=== PATIENT | male | born 1960 | race Caucasian/White ===

== ENCOUNTER 2024-12-29 00:22 | Inpatient (IN) | payer OTHER, MEDICAID ==
[~2024-12-29] VITALS: Ht 177.8 cm; Wt 82.4 kg
[2024-12-29] VITALS (15 sets, daily range): BP systolic 115–143; BP diastolic 44–79; PULSE 66–92; RESP 12–19; TEMP 98–98.6; O2SAT 95–100
--- NOTE | 2024-12-29 00:35 | ECG ---
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
--- NOTE | 2024-12-29 00:41 | ED.PDOC ---
HPI Comments 64 year old male presents to the ED via EMS with a chief compliant of chest pain onset 2 weeks. Per EMS, patient has been experiencing LT sided chest pain, EKG showed possible STEMI. Patient states he has been experiencing intermittent chest pain for the past two weeks, noticed pain was constant for the past few hours, cramping sensation, radiating to LT shoulder, LT arm, back. He has been seen by PCP, Dr. Espitia, was referred to Laboratory Tech for further workup. PMHx HTN, GERD, asthma. Denies nausea, vomiting, fevers, chills, shortness of breath, dizziness, headache, blurry vision. No other symptoms or modifying factors present at this time. Time Seen by MD: 00:30 Reviewed Notes: Medications, Allergies Allergies: Coded Allergies: Ceftriaxone (Verified Allergy, Severe, 09/01/14) Codeine (Unverified Allergy, Severe, 09/01/14) Information Source: Patient, Emergency Med Personnel Mode of Arrival: EMS Severity: Moderate Timing: Weeks Duration: Since onset Prehospital treatment: Pain Meds (100 mcg Fentanyl, Aspirin) Location: Chest (L) Radiation: Back, Shoulder (L), Arm (L) Quality: Tightness (cramping) Onset: At Rest Cardiac Risk Factors: HTN PE Risk Factors: None History of: None Modifying Factors: Nothing Associated Signs and Symptoms: Back Pain Past Medical History PAST MEDICAL HISTORY: Asthma, GERD, HTN Surgical History: Appendectomy Family History Family History: Unobtainable Social History Smoker: Non-Smoker Alcohol: Denies ETOH Use Drugs: Denies Drug Use Lives In: Home Constitutional: denies: chills, diaphoresis, fatigue, fever, malaise, sweats, weakness, others EENTM: denies: blurred vision, double vision, ear bleeding, ear discharge, ear drainage, ear pain, ear ringing, eye pain, eye redness, hearing loss, mouth pain, mouth swelling, nasal discharge, nose bleeding, nose congestion, nose pain, photophobia, tearing, throat pain, throat swelling, voice changes, others Respiratory: denies: cough, hemoptysis, orthopnea, SOB at rest, shortness of breath, SOB with excertion, stridor, wheezing, others Cardiovascular: reports: chest pain; denies: dizzy spells, diaphoresis, Dyspnea on exertion, edema, irregular heart beat, left arm pain, lightheadedness, palpitations, PND, syncope, others Gastrointestinal: denies: abdomen distended, abdominal pain, blood streaked bowels, constipated, diarrhea, dysphagia, difficulty swallowing, hematemesis, melena, nausea, poor appetite, poor fluid intake, rectal bleeding, rectal pain, vomiting, others Genitourinary: denies: burning, dysuria, flank pain, frequency, hematuria, incontinence, penile discharge, penile sore, pain, testicle pain, testicle swelling, urgency, others Neurological: denies: dizziness, fainting, headache, left sided numbness, left sided weakness, numbness, paresthesia, pre-existing deficit, right sided numbness, right sided weakness, seizure, speech problems, tingling, tremors, weakness, others Musculoskeletal: reports: back pain, others (LT shoulder pain, LT arm pain); denies: gout, joint pain, joint swelling, muscle pain, muscle stiffness, neck pain Integumetry: denies: bruises, change in color, change in hair/nails, dryness, laceration, lesions, lumps, rash, wounds, others Allergic/Immunocompromised: denies: Difficulty Healing, Frequent Infections, Hives, Itching, others Hematologic/Lymphatic: denies: anemia, blood clots, easy bleeding, easy bruising, swollen glands, others Endocrine: denies: excessive hunger, excessive sweating, excessive thirst, excessive urination, flushing, intolerance to cold, intolerance to heat, unexp lained weight gain, unexplained weight loss, others Psychiatric: denies: anxiety, bipolar disorder, depression, hopeless, panic disorder, schizophrenia, sleepless, suicidal, others All Other Systems: Reviewed and Negative Physical Exam General Appearance: Normal HEENT: Normal ENT Inspection, Pharynx Normal, TMs Normal Neck: Full Range of Motion, Non-Tender, Normal, Normal Inspection Respiratory: Chest Non-Tender, Lungs Clear, No Accessory Muscle Use, No Respiratory Distress, Normal Breath Sounds Cardiovascular: No Edema, No JVD, No Murmur, No Gallop, Normal Peripheral Pulses, Regular Rate/Rhythm Breast Exam: Deferred Gastrointestinal: No Organomegaly, Non Tender, No Pulsatile Mass, Normal Bowel Sounds, Soft Genitalia: Deferred Pelvic: Deferred Rectal: Deferred Extremities: No calf tenderness, Normal capillary refill, Normal inspection, Normal range of motion, Non-tender, No pedal edema Musculoskeletal : Apperance: Normal Neurologic: Alert, enrollment consultant II-XII nml as Tested, No Motor Deficits, Normal Affect, Normal Mood, No Sensory Deficits Cerebellar Function: Normal Reflexes: Normal Skin: Dry, Normal Color, Warm Lymphatic: No Adenopathy Was a procedure done? Was a procedure done?: No CP Differential Dx Differential Diagnosis: MAT, CA, PAC's Differential Diagnosis: HTN Essential, HTN Accelerated Differential Diagnosis: Gastritis, Myocardial Infarction X-Ray, Labs, Meds, VS Vital Signs Date Time Temp Pulse Resp B/P (MAP) Pulse Ox O2 Delivery O2 Flow Rate FiO2 12/29/24 01:00 92 19 95 Room Air* 0 21 12/29/24 01:00 98.2 92 19 131/80 (97) 95 98.2 12/29/24 00:37 98.9 101 14 170/90 (116) 100 98.9 12/29/24 00:25 91 Lab Test 12/29/24 01:26 12/29/24 00:34 Range/Units Troponin I High Sensitivity Pending 35 </=54 ng/L White Blood Count 7.8 4.4-10.8 10^3/uL Red Blood Count 5.36 4.5-5.90 10^6/uL Hemoglobin 15.6 13.5-17.5 g/dL Hematocrit 46.7 41.0-53.0 % Mean Corpuscular Volume 87.1 80.0-100.0 fL Mean Corpuscular Hemoglobin 29.1 28.0-32.0 pg Mean Corpuscular Hemoglobin Concent 33.4 32.0-36.0 g/dL Red Cell Distribution Width 13.7 11.8-14.3 % Platelet Count 221 140-450 10^3/uL Mean Platelet Volume 8.6 6.9-10.8 fL Neutrophils (%) (Auto) 53.0 37.0-80.0 % Lymphocytes (%) (Auto) 31.7 10.0-50.0 % Monocytes (%) (Auto) 11.2 0.0-12.0 % Eosinophils (%) (Auto) 3.2 0.0-7.0 % Basophils (%) (Auto) 0.9 0.0-2.0 % Neutrophils # (Auto) 4.1 1.6-8.6 10 ^3/uL Lymphocytes # (Auto) 2.5 0.4-5.4 10 ^3/uL Monocytes # (Auto) 0.9 0-1.3 10 ^3/uL Eosinophils # (Auto) 0.2 0-0.8 10 ^3/uL Basophils # (Auto) 0.1 0-0.2 10 ^3/uL Nucleated Red Blood Cells 0.1 % Sodium Level 132 L 136-145 mmol/L Potassium Level 3.8 3.5-5.1 mmol/L Chloride Level 98 98-107 mmol/L Carbon Dioxide Level 24 20-31 mmol/L Anion Gap 10 5-15 Blood Urea Nitrogen 14 9-23 mg/dL Creatinine 0.99 0.700-1.30 mg/dL Glomerular Filtration Rate Calc 84 >90 mL/min BUN/Creatinine Ratio 14.1 10.0-20.0 Serum Glucose 111 H 74-106 mg/dL Calcium Level 9.6 8.7-10.4 mg/dL B-Type Natriuretic Peptide 20.10 0-100 pg/mL Time of 1ST Reevaluation: 01:00 Reevaluation 1ST: Unchanged Patient Education/Counseling: Diagnosis, Treatment, Prognosis Family Education/Counseling: No Family Present SEPSIS Sepsis Screen Physician Orders Chest Portable (12/29/24 00:34) Troponin-I Hs (12/29/24 01:34) Troponin-I Hs (12/29/24 03:34) Electrocardigram (12/29/24 01:34) Electrocardigram (12/29/24 03:34) Urinalysis (12/29/24 00:35) Vital Signs Date Time Temp Pulse Resp B/P (MAP) Pulse Ox O2 Delivery O2 Flow Rate FiO2 12/29/24 01:00 92 19 95 Room Air* 0 21 12/29/24 01:00 98.2 92 19 131/80 (97) 95 98.2 12/29/24 00:37 98.9 101 14 170/90 (116) 100 98.9 12/29/24 00:25 91 Laboratory Tests Test 12/29/24 00:34 White Blood Count 7.8 10^3/uL (4.4-10.8) Departure 1 Departure Time of Disposition: 02:01 (Patient presented with chest pain that was concerning for possible STEMI, ACS, PE, Pneumonia, Muscle Strain, COPD, Dissection. Data: 1. I ordered and reviewed the result of at least 3 labs including a CBC, BMP, and Troponin. 2. I independently interpreted the following tests: EKG which shows sinus arrhythmia and Chest X-ray which shows benign chest.Risk:This patient has a high risk of morbidity due to further diagnostic testing or treatment and may suffer from an acute cardiac or respiratory disorder. Workup reveals concern for ACS and patient should be admitted for further workup and possible expert consultation. ) Impression: Primary Impression: Acute chest pain Disposition: ADMITTED INPATIENT Admit to: Med Surg Condition: Guarded Critical Care Note Critical Care Time?: Yes Critical care comment: Acute chest pain Authorized and Performed by: Maddie Shirley MD Total critical care time: Approximately 38 minutes Due to a high probability of clinically significant, life threatening deterioration, the patient required my highest level of preparedness to intervene emergently and I personally spent this critical care time directly and personally managing the patient. This critical care time included obtaining a history; examining the patient; pulse oximetry; ordering and review of studies; arranging urgent treatment with development of a management plan; evaluation of patient's response to treatment; frequent reassessment; and, discussions with other providers. This critical care time was performed to assess and manage the high probability of imminent, life-threatening deterioration that could result in multi-organ failure. It was exclusive of separately billable procedures and treating other patients and teaching time. Please see my other sections and the rest of the note for further information on patient assessment and treatment. Stability Stability form required: No Heart Score Heart Score: Heart Score Response (Comments) Value History Moderate Suspicious 1 EKG Repolarization Disturb 1 Age >65 2 Risk Factors >3 or Hx ASHD 2 Troponin 1-2 x's Normal limit 1 Total 7 I personally scribed for MADDIE SHIRLEY MD ([email or web address]) on 12/29/24 at 00:41. Electronically submitted by Ilene Tripp ([email or web address]). MADDIE SHIRLEY MD Dec 29, 2024 00:41
[2024-12-29 00:54] LABS: Basophils # (auto) 0.1 10 ^3/uL (0-0.2); Basophils % (auto) 0.9 % (0.0-2.0); Eosinophils # (auto) 0.2 10 ^3/uL (0-0.8); Eosinophils % (auto) 3.2 % (0.0-7.0); Hematocrit 46.7 % (41.0-53.0); Hemoglobin 15.6 g/dL (13.5-17.5); Lymphocytes # (auto) 2.5 10 ^3/uL (0.4-5.4); Lymphocytes % (auto) 31.7 % (10.0-50.0); Mean Corpuscular Hemoglobin 29.1 pg (28.0-32.0); Mean Corpuscular Hgb Conc. 33.4 g/dL (32.0-36.0); Mean Corpuscular Volume 87.1 fL (80.0-100.0); Monocytes # (auto) 0.9 10 ^3/uL (0-1.3); Monocytes % (auto) 11.2 % (0.0-12.0); Neutrophils # (auto) 4.1 10 ^3/uL (1.6-8.6); Nucleated Red Blood Cells % 0.1 %; Platelet Count (auto) 221 10^3/uL (140-450); Red Blood Cells 5.36 10^6/uL (4.5-5.90); Red Cell Distribution Width 13.7 % (11.8-14.3); White Blood Cell 7.8 10^3/uL (4.4-10.8)
[2024-12-29 01:08] LABS: Chloride 98 mmol/L (98-107); Potassium 3.8 mmol/L (3.5-5.1)
[2024-12-29 01:09] LABS: Anion Gap 10 (5-15); Calcium 9.6 mg/dL (8.7-10.4); Carbon Dioxide 24 mmol/L (20-31); Sodium 132 mmol/L (136-145)
[2024-12-29 01:14] LABS: BUN/Creatinine Ratio 14.1 (10.0-20.0); Blood Urea Nitrogen 14 mg/dL (9-23)
[2024-12-29 01:37] LABS: Glucose 111 mg/dL (74-106)
--- NOTE | 2024-12-29 02:24 | DVH ---
CHEST RADIOGRAPH Indication: chest pain Technique: Single frontal view of the chest was obtained COMPARISON: None FINDINGS: Lines and Tubes: None Lungs: Clear Pleura: No effusion. No pneumothorax. Cardiomediastinal contours: Unremarkable Bones: Unremarkable IMPRESSION: 1. No acute disease.
[2024-12-29 02:42] LABS: Urine Bacteria None Seen /hpf (None Seen)
[2024-12-29] MEDS ORDERED: NITROGLYCERIN 0.4 MG SL TAB SL PRN (02:45)
[2024-12-29 02:49] LABS: Urine Blood Negative /uL (Negative); Urine Clarity Clear (Clear); Urine Color Colorless (Yellow); Urine Protein, UAD Negative (Negative); Urine Specific Gravity 1.008 (1.001-1.035); Urine Squamous Epithelial Cell None Seen /hpf (<5); Urine Urobilinogen Normal (Negative); Urine pH 6.5 (5.0-9.0)
[2024-12-29] MEDS: amLODIPine BESYLATE 5 MG TAB PO ONE (03:08)
[2024-12-29 03:09] LABS: Urine WBC < 1 /HPF (0-3)
--- NOTE | 2024-12-29 03:19 | ECG ---
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
[2024-12-29] MEDS: CARVEDILOL 3.125 MG TAB PO ONE (03:24)
[2024-12-29 04:44] LABS: INR 1.06 (0.9-1.15); Partial Thromboplastin Time 32.5 SEC (24.5-34.5); Prothrombin Time 11.2 sec (9.3-11.8)
[2024-12-29] MEDS: ATORVASTATIN 20 MG TAB PO ONE (04:44)
[2024-12-29] MEDS: CLOPIDOGREL BISULFATE 75 MG TAB PO ONE (04:44)
[2024-12-29] MEDS: HEPARIN SODIUM (PORCINE) 5000 UNITS/ML 1ML VIAL IV ONE (05:06)
[2024-12-29] MEDS: HEPARIN DRIP/D5W 100UNITS/ML 250 ML IV SCH (05:17)
--- NOTE | 2024-12-29 05:30 | DVHHPRES ---
History of Present Illness Resident Creating Document: TONY VIZCAINO RESIDENT History of Present Illness Patient is a 64-year-old male with a past medical history of hypertension, GERD, hiatal hernia, leukemia presented to the ED with a chief complaint of chest pain since 10:30 a.m. in the morning yesterday. Patient reported that he was resting on the couch after he did some gardening and started to have sudden onset chest in the left lower chest which was pressure-like and radiating to the left arm and the back following which she called the EMS and they gave aspirin 325 mg and fentanyl following which the pain was improved. Patient denied any shortness of breath, palpitations, no history of coronary artery disease or CA, no history of stroke. Patient denied any nausea, vomiting, abdominal pain. Initial 12 lead ECG showed sinus rhythm with T-wave inversion in V1 and lead 3 but no other significant ST or T-wave changes. Initial troponin levels were 35 which increased to 134 after 1 hour and trended up to 444 after 2 hours. Patient has been repeated further evaluation Past medical history: As per HPI Past surgical history: Appendectomy Social history: Patient denies smoking, alcohol, drug use Home medications: Amlodipine 5 mg, losartan 100 mg, Protonix 40 mg Review of Systems Review of Systems Patient seen and examined at the bedside Reported after he was given fentanyl and aspirin in the ambulance, with the pain improved with the chest pain has started to come back ECG was repeated, not show any significant changes from the previous EKG Denied nausea, vomiting, abdominal pain , shortness of breath Allergies: Coded Allergies: Ceftriaxone (Verified Allergy, Severe, 09/01/14) Codeine (Unverified Allergy, Severe, 09/01/14) Medications Current Medications Medications Dose Ordered Sig/Candace Route Start Time Stop Time Status Last Admin Dose Admin Nitroglycerin 0.4 mg Q5MINP PRN SL 12/29/24 02:45 Morphine Sulfate 2 mg Q30M PRN IV 12/29/24 02:45 Amlodipine Besylate 5 mg DAILY PO 12/29/24 10:00 Losartan Potassium 50 mg DAILY PO 12/29/24 10:00 Heparin Sodium/ Dextrose 250 ml @ 10 mls/hr Q24H IV 12/29/24 04:30 Atorvastatin Calcium 80 mg HS PO 12/29/24 22:00 Exam Vital Signs Vital Signs Date Time Temp Pulse Resp B/P (MAP) Pulse Ox O2 Delivery O2 Flow Rate FiO2 12/29/24 03:16 78 12/29/24 03:08 165/90 12/29/24 03:00 25 94 12/29/24 01:00 Room Air* 0 21 12/29/24 01:00 98.2 98.2 Exam Gen - no pallor, no icterus, no cyanosis, no clubbing, no LAD, no edema . Skin - Patients skin is warm and dry. HEENT - normocephalic, atraumatic, moist mucous membranes. Neck - full ROM, no LAD, no JVD Pulmonary - B/L equal breath sounds, no crackles, no wheezing, no stridor. cardiovascular - regular S1,S2 heard, no added sounds, no murmurs heard. peripheral pulses normal radial 2+, pedal 2+. capillary refill normal <2 secs. No radio radial delay, no radial pedal delay GI - soft, nontender abdomen. no hepatospleenomegaly. Bowel sounds normoactive Neurological - Patient is A/O X 3 . Bilateral upper extremity strength 5/5, bilateral lower extremity strength 5/5, no facial droop, normal speech, no tremor, no sensory deficiets. Labs/Xrays Labs Test 12/29/24 03:21 12/29/24 02:16 12/29/24 00:34 Range/Units Prothrombin Time 11.2 9.3-11.8 sec Prothrombin Time INR 1.06 0.9-1.15 Activated Partial Thromboplast Time 32.5 24.5-34.5 SEC D-Dimer, Quantitative 0.74 H 0.0-0.49 mg/L FEU Troponin I High Sensitivity 444 *H </=54 ng/L Urine Color Colorless Yellow Urine Clarity Clear Clear Urine pH 6.5 5.0-9.0 Urine Specific [place] 1.008 1.001-1.035 Urine Protein Negative Negative Urine Ketones Negative Negative Urine Blood Negative Negative /uL Urine Nitrite Negative Negative Urine Bilirubin Negative Negative Urine Urobilinogen Normal Negative mg/dL Urine Leukocyte Esterase Negative Negative /uL Urine RBC None seen 0 - 3 /hpf Urine Microscopic WBC < 1 0-3 /HPF Urine Squamous Epithelial Cells None seen <5 /hpf Urine Bacteria None seen None Seen /hpf Urine Glucose Normal Normal mg/dL White Blood Count 7.8 4.4-10.8 10^3/uL Red Blood Count 5.36 4.5-5.90 10^6/uL Hemoglobin 15.6 13.5-17.5 g/dL Hematocrit 46.7 41.0-53.0 % Mean Corpuscular Volume 87.1 80.0-100.0 fL Mean Corpuscular Hemoglobin 29.1 28.0-32.0 pg Mean Corpuscular Hemoglobin Concent 33.4 32.0-36.0 g/dL Red Cell Distribution Width 13.7 11.8-14.3 % Platelet Count 221 140-450 10^3/uL Mean Platelet Volume 8.6 6.9-10.8 fL Neutrophils (%) (Auto) 53.0 37.0-80.0 % Lymphocytes (%) (Auto) 31.7 10.0-50.0 % Monocytes (%) (Auto) 11.2 0.0-12.0 % Eosinophils (%) (Auto) 3.2 0.0-7.0 % Basophils (%) (Auto) 0.9 0.0-2.0 % Neutrophils # (Auto) 4.1 1.6-8.6 10 ^3/uL Lymphocytes # (Auto) 2.5 0.4-5.4 10 ^3/uL Monocytes # (Auto) 0.9 0-1.3 10 ^3/uL Eosinophils # (Auto) 0.2 0-0.8 10 ^3/uL Basophils # (Auto) 0.1 0-0.2 10 ^3/uL Nucleated Red Blood Cells 0.1 % Sodium Level 132 L 136-145 mmol/L Potassium Level 3.8 3.5-5.1 mmol/L Chloride Level 98 98-107 mmol/L Carbon Dioxide Level 24 20-31 mmol/L Anion Gap 10 5-15 Blood Urea Nitrogen 14 9-23 mg/dL Creatinine 0.99 0.700-1.30 mg/dL Glomerular Filtration Rate Calc 84 >90 mL/min BUN/Creatinine Ratio 14.1 10.0-20.0 Serum Glucose 111 H 74-106 mg/dL Calcium Level 9.6 8.7-10.4 mg/dL B-Type Natriuretic Peptide 20.10 0-100 pg/mL Assessment/Plan Assessment/Plan Acute chest pain NSTEMI likely type 1 Hypertensive heart disease - serial EKGs showed T-wave inversion in lead V1 and III, no other significant S T segment or T-wave changes - troponin levels up trended 35--> 134--> 444 - aspirin 325 mg given - patient is started on heparin drip - cardiology consulted - losartan 50 mg daily and amlodipine 5 mg daily - atorvastatin 80 mg Rule out pulmonary embolism - Wells score for PE < 4, PE less likely - bilateral lower extremity venous Doppler pending - D-dimer 0.74 Prophylaxis: Protonix Goals of care discussed with the patient and his for over 20 minutes. Full code Time spent: 41 minutes Plan discussed with Dr. Jordan Plan discussed with: Patient, Spouse My Orders Orders - TONY VIZCAINO RESIDENT Procedure Category Date Status Time Admit ADMIT 12/29/24 Transmitted 02:36 Nitroglycerin PHA 12/29/24 In Process Sublingual (Ntrostat 02:45 Morphine Sulfate PHA 12/29/24 In Process Injection 02:45 Oxygen By Nasal RT 12/29/24 Transmitted Cannula 02:36 Stat Ekg For Chest NIGEL 12/29/24 In Process Pain 02:36 Notify Of Changes [facility] 12/29/24 In Process From Base 02:36 Engraver Wood For [facility] 12/29/24 In Process 24 Hours 02:36 Emergency Dysrhythmia [facility] 12/29/24 In Process Protocol 02:36 Rhythm Strips Once NIGEL 12/29/24 In Process Every Shift 02:36 Amlodipine Tablet PHA 12/29/24 In Process (Norvasc Tablet) 10:00 Losartan Tablet PHA 12/29/24 In Process (Cozaar Tablet) 10:00 Echo 2d Mode Cardiac US 12/29/24 Logged DOP 02:36 Platelet Monitoring NIGEL 12/29/24 In Process 04:18 Heparin Per NIGEL 12/29/24 In Process Standardized Proce 04:18 Discontinue All Im NIGEL 12/29/24 In Process Injections 04:18 Complete Blood Count LAB 12/29/24 Logged 04:18 Heparin Drip/D5w PHA 12/29/24 In Process 100units/Ml 04:30 Stat Ekg For Chest NIGEL 12/29/24 In Process Pain 04:18 Atorvastatin (Lipitor) PHA 12/29/24 In Process 22:00 Date of Service: Dec 29, 2024 Billing Provider: HATTIE JORDAN MD Common Visit Codes: 22407-GWCCAPC INP/OBS CARE (HIGH) Secondary Visit Codes: 64854-NQCKQVRC CARE PLAN 30 MINUTES TONY VIZCAINO RESIDENT Dec 29, 2024 05:30
[2024-12-29] MEDS: PANTOPRAZOLE 40 MG/10 ML VIAL INJ IV ONE (05:36)
[2024-12-29 07:52] LABS: Basophils # (auto) 0.1 10 ^3/uL (0-0.2); Eosinophils # (auto) 0.2 10 ^3/uL (0-0.8); Eosinophils % (auto) 2.8 % (0.0-7.0); Hematocrit 44.9 % (41.0-53.0); Hemoglobin 15.5 g/dL (13.5-17.5); Lymphocytes # (auto) 2.9 10 ^3/uL (0.4-5.4); Mean Corpuscular Hemoglobin 29.9 pg (28.0-32.0); Mean Corpuscular Hgb Conc. 34.5 g/dL (32.0-36.0); Mean Corpuscular Volume 86.8 fL (80.0-100.0); Monocytes # (auto) 0.9 10 ^3/uL (0-1.3); Monocytes % (auto) 10.3 % (0.0-12.0); Neutrophils # (auto) 4.5 10 ^3/uL (1.6-8.6); Neutrophils % (auto) 51.9 % (37.0-80.0); Nucleated Red Blood Cells % 0.1 %; Platelet Count (auto) 239 10^3/uL (140-450); Red Blood Cells 5.18 10^6/uL (4.5-5.90); Red Cell Distribution Width 13.6 % (11.8-14.3); White Blood Cell 8.6 10^3/uL (4.4-10.8)
--- NOTE | 2024-12-29 08:27 | DVH ---
Bilateral lower extremity venous duplex Clinical History: pain Comparison: None Technique: Duplex Doppler evaluation of the deep venous systems of both lower extremities from the common femora l veins to the popliteal veins including color Doppler and spectral/pulsed waveform analysis was perf ormed. Findings: RIGHT SIDE: The common femoral vein demonstrates appropriate compressibility and waveform variability. There is compressibility/patency of the great saphenous vein at the proximal thigh. The femoral vein demonstrates appropriate compressibility and waveform variability. The deep femoral vein demonstrates appropriate compressibility and waveform variability. The popliteal vein demonstrates appropriate compressibility and waveform variability. There is normal compressibility at the tibioperoneal trunk. LEFT SIDE: The common femoral vein demonstrates appropriate compressibility and waveform variability. There is compressibility/patency of the great saphenous vein at the proximal thigh. The femoral vein demonstrates appropriate compressibility and waveform variability. The deep femoral vein demonstrates appropriate compressibility and waveform variability. The popliteal vein demonstrates appropriate compressibility and waveform variability. There is normal compressibility at the tibioperoneal trunk. Impression: No right or left femoropopliteal venous thrombosis.
[2024-12-29 08:30] LABS: Magnesium 1.7 mg/dL (1.6-2.6)
[2024-12-29] MEDS: IODIXANOL 320MG/ML 100ML BTL IV ONE ×3 (08:43→10:32)
--- NOTE | 2024-12-29 08:53 | DVHINCON2 ---
Date Seen: Dec 29, 2024 Referring Physician MD Lizeth Reason for Consultation NSTEMI History of Present Illness This is a pleasant 64-year-old man who presented to the emergency room via EMS with a chief complaint of chest pain since 2229 last night. The patient reports he was sitting down resting at the onset of symptoms. Describes his chest pain as substernal radiating to the left inframammary area/left upper back/and left upper extremity, cramping like, and constant prompting to call 911. EN route to the hospital he was medicated with ASA 325 mg p.o. x1 and fentanyl 100 mcg IV x1 with some relief of symptoms. At time of assessment he rated his chest pain as 6/10. He underwent multiple 12 lead electrocardiogram revealing a sinus rhythm with diffuse nonspecific ST-T wave changes mostly to inferior leads. Serial troponin levels are trending up with latest > 1400s ng/L. Significant medical history includes hypertension, chronic lymphocytic leukemia without current treatment, GERD, and obesity. Past Medical History Past medical history reviewed. No other significant than mentioned above. Past Surgical History Right shoulder Appendectomy Bilateral feet Family History Father from massive CVA. Brother with NH status post PCI at 55 y.o. Social History Denies the use of illicit drugs, alcohol, or tobacco use. Allergies: Coded Allergies: Ceftriaxone (Verified Allergy, Severe, 09/01/14) Codeine (Unverified Allergy, Severe, 09/01/14) Home Meds Home medications reviewed. Current Medications Current Medications Medications (Trade) Dose Ordered Sig/Candace Route PRN Reason Start Time Stop Time Status Last Admin Nitroglycerin (Ntrostat Sublingual) 0.4 mg Q5MINP PRN SL FOR CHEST PAIN 12/29/24 02:45 Morphine Sulfate 2 mg Q30M PRN IV FOR CHEST PAIN 12/29/24 02:45 Amlodipine Besylate (Norvasc Tablet) 5 mg DAILY PO 12/29/24 10:00 Losartan Potassium (Cozaar Tablet) 50 mg DAILY PO 12/29/24 10:00 Heparin Sodium/ Dextrose 250 ml @ 10 mls/hr Q24H IV 12/29/24 04:30 12/29/24 05:17 Atorvastatin Calcium (Lipitor) 80 mg HS PO 12/29/24 22:00 Pantoprazole Sodium (Protonix) 40 mg DAILY IV 12/30/24 10:00 Review of Systems Constitutional: No symptom reported Ears, Nose, & Throat: No symptom reported Eyes: No symptom reported Neurological: No symptoms reported Pulmonary/Respiratory: No symptom reported Cardiovascular: Chest pain Gastrointestinal: No symptom reported Genitourinary: No symptom reported Musculoskeletal: No symptom reported Skin: No symptom reported Psychiatric: No symptom reported Endocrine: No symptom reported Hemotologic/Lymphatic: No symptom reported Vital Signs Vital Signs Date Time Temp Pulse Resp B/P (MAP) Pulse Ox O2 Delivery O2 Flow Rate FiO2 12/29/24 08:08 66 12/29/24 08:00 98.0 18 121/66 (84) 95 98.0 12/29/24 01:00 Room Air* 0 21 Physical Exam General Appearance: Cooperative. Well developed. Well nourished. In no acute distress Head Exam: Normal inspection Neck Exam: Normal inspection. Non-tender. Normal alignment Pulmonary/Respiratory: Chest non-tender. Clear bilateral breath sounds Cardiovascular/Chest: Regular rate and rhythm. S1, S2. Sinus rhythm with nonspecific diffuse ST-T changes. No murmurs. No JVD. Peripheral Pulses: 2+ Radial (R). 2+ Radial (L). 2+ Pedal (R). 2+ Pedal (L) Abdominal Exam: Normal bowel sounds. Soft. Nontender. No hepatospenomegaly. No masses Ankle Exam: Negative ankle edema Lower extremities: Negative lower extremity edema Neuro/Mental Status: A&O x4. Coherent Thoughts/Psych: Normal thought pattern. Appropriate mood and affect. Good judgement and insight Appearance: In no acute distress Skin Exam: Normal inspection. Normal color. Warm. Dry Labs/Diagnostic Data Labs Test 12/29/24 08:44 12/29/24 07:42 12/29/24 03:21 12/29/24 02:16 Range/Units White Blood Count 8.6 4.4-10.8 10^3/uL Red Blood Count 5.18 4.5-5.90 10^6/uL Hemoglobin 15.5 13.5-17.5 g/dL Hematocrit 44.9 41.0-53.0 % Mean Corpuscular Volume 86.8 80.0-100.0 fL Mean Corpuscular Hemoglobin 29.9 28.0-32.0 pg Mean Corpuscular Hemoglobin Concent 34.5 32.0-36.0 g/dL Red Cell Distribution Width 13.6 11.8-14.3 % Platelet Count 239 140-450 10^3/uL Mean Platelet Volume 8.5 6.9-10.8 fL Neutrophils (%) (Auto) 51.9 37.0-80.0 % Lymphocytes (%) (Auto) 34.0 10.0-50.0 % Monocytes (%) (Auto) 10.3 0.0-12.0 % Eosinophils (%) (Auto) 2.8 0.0-7.0 % Basophils (%) (Auto) 1.0 0.0-2.0 % Neutrophils # (Auto) 4.5 1.6-8.6 10 ^3/uL Lymphocytes # (Auto) 2.9 0.4-5.4 10 ^3/uL Monocytes # (Auto) 0.9 0-1.3 10 ^3/uL Eosinophils # (Auto) 0.2 0-0.8 10 ^3/uL Basophils # (Auto) 0.1 0-0.2 10 ^3/uL Nucleated Red Blood Cells 0.1 % Prothrombin Time 11.2 9.3-11.8 sec Prothrombin Time INR 1.06 0.9-1.15 Activated Partial Thromboplast Time 32.5 24.5-34.5 SEC D-Dimer, Quantitative 0.74 H 0.0-0.49 mg/L FEU Magnesium Level 1.7 1.6-2.6 mg/dL Triglycerides Level 95 < 150 mg/dL Cholesterol Level 99 < 200 mg/dL LDL Cholesterol 61 < 100 mg/dL HDL Cholesterol 31 L 40-59 mg/dL Thyroid Stimulating Hormone (TSH) 1.01 0.55-4.78 uIU/mL Urine Color Colorless Yellow Urine Clarity Clear Clear Urine pH 6.5 5.0-9.0 Urine Specific Glidden 1.008 1.001-1.035 Urine Protein Negative Negative Urine Ketones Negative Negative Urine Blood Negative Negative /uL Urine Nitrite Negative Negative Urine Bilirubin Negative Negative Urine Urobilinogen Normal Negative mg/dL Urine Leukocyte Esterase Negative Negative /uL Urine RBC None seen 0 - 3 /hpf Urine Microscopic WBC < 1 0-3 /HPF Urine Squamous Epithelial Cells None seen <5 /hpf Urine Bacteria None seen None Seen /hpf Urine Glucose Normal Normal mg/dL Test 12/29/24 00:34 Range/Units Sodium Level 132 L 136-145 mmol/L Potassium Level 3.8 3.5-5.1 mmol/L Chloride Level 98 98-107 mmol/L Carbon Dioxide Level 24 20-31 mmol/L Anion Gap 10 5-15 Blood Urea Nitrogen 14 9-23 mg/dL Creatinine 0.99 0.700-1.30 mg/dL Glomerular Filtration Rate Calc 84 >90 mL/min BUN/Creatinine Ratio 14.1 10.0-20.0 Serum Glucose 111 H 74-106 mg/dL Calcium Level 9.6 8.7-10.4 mg/dL B-Type Natriuretic Peptide 20.10 0-100 pg/mL Assessment Non ST-elevation myocardial infarction Rule out structural heart disease Pertinent family history for cardiovascular disease Chronic lymphocytic leukemia. Hypertension GERD Plan/Recommendation (Dr. Wong) Scheduled for urgent cardiac catheterization and coronary angiogram at first av ailable. All risks and benefits of the procedure were discussed with the patient who agrees to proceed with intervention. All questions answered. at bedside aware of POC and agrees with intervention. In the meantime, obtain a transthoracic echocardiogram to evaluate cardiac function. Continue ACS protocol and heparin drip as scheduled. Patient loaded on ASA 325 mg EN route to the hospital. Monitor ECG changes closely and notify. Rest of recommendations per clinical course. Thank you for allowing us to participate in this patient's care. Please call if you have any questions or concerns. Critical care time: 50 min. This medical document was created using an electronic medical record system with voice recognition software and comp uterized dictation system. Although this document has been carefully reviewed, there might still be some phonetic and typographical errors. Occasional wrong- word or ``sound-alike substitutions may have occurred due to the inherent limitations of voice recognition software. These areas are purely typographical due to imperfections of the software programs and do not reflect any compromise in the patient's medical care. Please read the chart carefully and recognize, using context, where these substitutions have occurred. Plan discussed with: Patient, Spouse, Other NYHA Physical activity limitations: NA Date of Service: Dec 29, 2024 Billing Provider: THUAN ROBLES Cardiology Common Codes: 38055-PQNCXQBG CARE 30-74 MIN THUAN ROBLES Dec 29, 2024 08:53
[2024-12-29] MEDS: MIDAZOLAM HCL 2MG/2ML 2ml VIAL (1mg/ml) ONE (09:12)
[2024-12-29] MEDS: SODIUM CHL 0.9% 50 ML ONE (09:12)
[2024-12-29] MEDS: LIDOCAINE 2%HCL (LOCAL ANESTH.) INJ 20ML MDV ONE (09:12)
[2024-12-29] MEDS: fentaNYL CITRATE 100 MCG/2 ML VL ONE (09:12)
[2024-12-29] MEDS: ANGIOMAX 250 MG VIAL IV ONE (09:12)
[2024-12-29] MEDS: VERAPAMIL 2.5MG/ML INJ 2ML VIAL IV ONE (09:12)
[2024-12-29] MEDS: CLOPIDOGREL BISULFATE 75 MG TAB ONE (10:33)
[2024-12-29] MEDS: ASPirin 325 MG TAB ONE (10:33)
--- NOTE | 2024-12-29 10:39 | DVHOP2 ---
Operative Report - 2 Report Details Date: 12/29/24 Preop Diagnosis: Non ST-elevation SC Postop Diagnosis: Non ST-elevation SC. 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 Surgeon: Naomy Wong MD Anesthesiologist: Conscious sedation Anesthesia: Mac, Local Consent: The patient was informed of the risks and benefits of the procedure. These include but are not limited to complications of anesthesia, postoperative infection, incomplete relief of symptoms, recurrence of symptoms, damage to blood vessels, nerves and tendons, deep venous thrombosis, pulmonary embolism and possible need for repeat surgery in the future. Complications: No complications Findings: Severe circumflex stenosis. Indications for Surgery: Non ST-elevation SC. Name of Procedure Performed Left heart catheterization bilateral cine coronary angiography. Left ventriculography. Intravascular ultrasound evaluation of circumflex and LAD. Fractional flow reserve evaluation of LAD. Procedure Details Procedure Details: Prior local anesthesia with 2% lidocaine to the right wrist and full informed consent obtained patient was prepped and draped in usual fashion followed by placement of a six Malay sheath into the radial artery followed by placement of a Damien catheter for cannulation of both right and left coronary ostium and ventriculography. Patient tolerated the procedure well there were no complications. Hemodynamics: Aortic blood pressure was 110/70. End-diastolic pressure was five. There was no gradient across the aortic valve on pullback Coronary anatomy: The RCA is a large vessel it is normal in its proximal mid and distal segments. It is dominant. The left main is large and normal however short. The circumflex is large with a 99% stenosis at its proximal to midportion at the level of the inferior branch. The LAD has notable calcification. There appears to be a 60-70% stenosis that by FFR was found to be 0.88. Ventriculography in the CUM[place]INGS projection showed an EF of 65% without wall motion abnormalities. Angioplasty: After performing angiographic evaluation we placed a three five XB LAD catheter and placed a C-arm blue wire into the circumflex coronary artery followed by PTCA with a 2.5 x 12 balloon. We then placed an intravascular ultrasound device into the circumflex coronary artery. This was a Relux device. We found the artery to be a proximally 3-0 to 3.25 mm in diameter. We placed a 3-0 by 18 mm stent into the mid circumflex. We post dilated with a 3-0 by eight balloon. This was a noncompliant balloon.. We then placed intravascular ultrasound to determine adequate apposition of the stent struts. After verifying adequate position we then performed fractional flow reserve evaluation of the left anterior descending coronary and intravascular ultrasound showing a calcified vessel. FFR of .88 at the proximal segment and 0.83 distally however the artery distally was not amenable to angioplasty. Impression: Successful PTCA and stenting of the circumflex. 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 Normal left ventricular ejection fraction. Normal end-diastolic pressure at rest. Recommendation: dual antiplatelet therapy and risk factor modification to continue. Condition Good Disposition Still a Patient Date of Service: Dec 29, 2024 Billing Provider: NAOMY WONG Sr., MD Cardiology Common Codes: [id number] INP/OBS CARE (High) Cardiology Procedure Codes: 26350 -PTCA W/STENT PLACEMENT, 61233-OFRS ADD CORONARY BRANCH, 61961-BSNK FOR STEMI W/STENT, 64553-RJYD HEART CATH W/INTRA INJ (Fractional flow reserve evaluation of the left anterior descending coronary artery. Intravascular ultrasound evaluation of the LAD and circumflex coronary artery.) NAOMY WONG Sr., MD Dec 29, 2024 10:39
[2024-12-29] MEDS: LOSARTAN POTASSIUM 50 MG TAB PO SCH (10:54)
[2024-12-29] MEDS: amLODIPine BESYLATE 5 MG TAB PO SCH (10:55)
--- NOTE | 2024-12-29 14:17 | DVHPNRES ---
Progress Note Date Seen: Dec 29, 2024 Resident Creating Document: ELENITA CHURCHILL RESIDENT Has the PT tested + for MRSA If YES, has PT been informed?: No Medical Necessity Reason Pt with a Central, PICC or Fol: No (rn) Subjective Review of Systems Patient is a 64-year-old male with a past medical history of hypertension, GERD, hiatal hernia, leukemia presented to the ED with a chief complaint of chest pain since 10:30 a.m. in the morning yesterday. Patient reported that he was resting on the couch after he did some gardening and started to have sudden onset chest in the left lower chest which was pressure-like and radiating to the left arm and the back following which she called the EMS and they gave aspirin 325 mg and fentanyl following which the pain was improved. Patient denied any shortness of breath, palpitations, no history of coronary artery disease or [place], no history of stroke. Patient denied any nausea, vomiting, abdominal pain. Initial 12 lead ECG showed sinus rhythm with T-wave inversion in V1 and lead 3 but no other significant ST or T-wave changes. Initial troponin levels were 35 which increased to 134 after 1 hour and trended up to 444 after 2 hours. Patient has been repeated further evaluation Past medical history: As per HPI Past surgical history: Appendectomy Social history: Patient denies smoking, alcohol, drug use Home medications: Amlodipine 5 mg, losartan 100 mg, Protonix 40 mg 12/29/24: troponins were trending high more than thousand, patient was taken to the field laboratory operator: Successful PTCA and stenting of the circumflex. 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 Objective vital signs Vital Sign Date Time Temp Pulse Resp B/P (MAP) Pulse Ox O2 Delivery O2 Flow Rate FiO2 12/29/24 13:25 71 14 119/65 (83) 96 12/29/24 10:25 98.6 98.6 12/29/24 08:00 Room Air* 0 21 medications Current Medications Medications Dose Ordered Sig/Candace Route Start Time Stop Time Status Last Admin Dose Admin Nitroglycerin 0.4 mg Q5MINP PRN SL 12/29/24 02:45 Morphine Sulfate 2 mg Q30M PRN IV 12/29/24 02:45 Amlodipine Besylate 5 mg DAILY PO 12/29/24 10:00 12/29/24 10:55 5 MG Losartan Potassium 50 mg DAILY PO 12/29/24 10:00 12/29/24 10:54 50 MG Pantoprazole Sodium 40 mg DAILY IV 12/30/24 10:00 Atorvastatin Calcium 40 mg HS PO 12/29/24 22:00 Aspirin 81 mg DAILY PO 12/30/24 10:00 Examination Gen - no pallor, no icterus, no cyanosis, no clubbing, no LAD, no edema . Skin - Patients skin is warm and dry. HEENT - normocephalic, atraumatic, moist mucous membranes. Neck - full ROM, no LAD, no JVD Pulmonary - B/L equal breath sounds, no crackles, no wheezing, no stridor. cardiovascular - regular S1,S2 heard, no added sounds, no murmurs heard. peripheral pulses normal radial 2+, pedal 2+. capillary refill normal <2 secs. No radio radial delay, no radial pedal delay GI - soft, nontender abdomen. no hepatospleenomegaly. Bowel sounds normoactive Neurological - Patient is A/O X 3 . Bilateral upper extremity strength 5/5, bilateral lower extremity strength 5/5, no facial droop, normal speech, no tremor, no sensory deficiets. laboratory and microbiology Laboratory Tests 12/29/24 07:42 12/29/24 00:34 Test 12/29/24 00:34 Range/Units Serum Glucose 111 H 74-106 mg/dL Problem List/Assessment/Plan Problem List/Assessment/Plan sp PTCA and stenting of the circumflex. 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 Acute chest pain NSTEMI likely type 1 Hypertensive heart disease with diastolic dysfunction - serial EKGs showed T-wave inversion in lead V1 and III, no other significant ST segment or T-wave changes - troponin levels up trended 35--> 134--> 444 --> 1461 -->1594 patient was taken to field laboratory operator: angioplasty done -aspirin 81 mg -metoprolol 25 mg - losartan 25mg daily - atorvastatin 40 mg Rule out pulmonary embolism - Wells score for PE < 4, PE less likely - bilateral lower extremity venous Doppler pending - D-dimer 0.74 Prophylaxis: Protonix Goals of care discussed with the patient and his for over 20 minutes. Full code Time spent: 41 minutes Plan discussed with Dr. Pendleton Plan discussed with: Patient, Other Date of Service: Dec 29, 2024 Billing Provider: MADHAV PENDLETON MD Common Visit Codes: [id number] INP/OBS CARE(HIGH) ELENITA CHURCHILL RESIDENT Dec 29, 2024 14:17 MADHAV PENDLETON MD Jan 03, 2025 21:46
[2024-12-29] MEDS: MAGNESIUM SULFATE 1GM/100ML 100 ML IV ONE (16:39)
[2024-12-29] MEDS ORDERED: PANT1INJ3 PO (16:48)
[2024-12-29] MEDS ORDERED: LOSA-535 PO (16:48)
[2024-12-29] MEDS ORDERED: AML5T PO (16:48)
[2024-12-29] MEDS ORDERED: GABA-1250 PO (16:48)
[2024-12-29] MEDS: MORPHINE SULFATE INJ 2 MG/ml SYRG IV PRN (20:20)
[2024-12-29] MEDS ORDERED: ATORVASTATIN 20 MG TAB PO SCH (22:00)
[2024-12-29] MEDS: ATORVASTATIN 20 MG TAB PO SCH (22:10)
[2024-12-30] VITALS (7 sets, daily range): BP systolic 128–144; BP diastolic 67–88; PULSE 67–79; RESP 16–18; TEMP 98–98.7; O2SAT 94–97
[2024-12-30 07:39] LABS: Basophils # (auto) 0 10 ^3/uL (0-0.2); Basophils % (auto) 0.4 % (0.0-2.0); Eosinophils # (auto) 0.3 10 ^3/uL (0-0.8); Eosinophils % (auto) 2.8 % (0.0-7.0); Hematocrit 45.6 % (41.0-53.0); Hemoglobin 15.8 g/dL (13.5-17.5); Lymphocytes # (auto) 2.1 10 ^3/uL (0.4-5.4); Lymphocytes % (auto) 21.8 % (10.0-50.0); Mean Corpuscular Hemoglobin 30.2 pg (28.0-32.0); Mean Corpuscular Hgb Conc. 34.7 g/dL (32.0-36.0); Mean Corpuscular Volume 87.1 fL (80.0-100.0); Monocytes % (auto) 10.4 % (0.0-12.0); Neutrophils # (auto) 6.3 10 ^3/uL (1.6-8.6); Neutrophils % (auto) 64.6 % (37.0-80.0); Nucleated Red Blood Cells % 0.1 %; Platelet Count (auto) 242 10^3/uL (140-450); Red Blood Cells 5.24 10^6/uL (4.5-5.90); Red Cell Distribution Width 13.8 % (11.8-14.3); White Blood Cell 9.8 10^3/uL (4.4-10.8)
[2024-12-30 08:02] LABS: Alanine Aminotransferase 14 U/L (7-40); Albumin 4.4 g/dL (3.2-4.8); Alkaline Phosphatase 113 U/L (46-116); Anion Gap 11 (5-15); Aspartate Aminotransferase 24 U/L (<34); BUN/Creatinine Ratio 13.5 (10.0-20.0); Bilirubin, Total 0.7 mg/dL (0.2-1.0); Blood Urea Nitrogen 12 mg/dL (9-23); Calcium 10.3 mg/dL (8.7-10.4); Carbon Dioxide 23 mmol/L (20-31); Chloride 105 mmol/L (98-107); Glucose 84 mg/dL (74-106); Sodium 139 mmol/L (136-145); Total Protein 6.5 g/dL (5.7-8.2)
[2024-12-30] MEDS ORDERED: ATOR40TA52 PO (09:37)
[2024-12-30] MEDS ORDERED: CLOP75TA70 PO (09:37)
[2024-12-30] MEDS ORDERED: METO25TA93 PO (09:37)
[2024-12-30] MEDS ORDERED: ASPI-543 PO (09:37)
[2024-12-30] MEDS ORDERED: LOSA-534 PO (09:37)
[2024-12-30] MEDS ORDERED: ALUM1SUS16 PO (09:38)
[2024-12-30] MEDS ORDERED: CLOPIDOGREL BISULFATE 75 MG TAB PO SCH (10:00)
[2024-12-30] MEDS: PANTOPRAZOLE 40 MG/10 ML VIAL INJ IV SCH (10:00)
[2024-12-30] MEDS ORDERED: ASPirin 81 mg TAB PO SCH (10:00)
[2024-12-30] MEDS: CLOPIDOGREL BISULFATE 75 MG TAB PO SCH (10:16)
[2024-12-30] MEDS: LOSARTAN POTASSIUM 50 MG TAB PO SCH (10:16)
[2024-12-30] MEDS: METOPROLOL SUCCINATE XL 50 MG TAB PO SCH (10:17)
[2024-12-30] MEDS: ASPirin-EC 81 mg tab PO SCH (10:17)
--- NOTE | 2024-12-30 11:08 | ECG ---
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
--- NOTE | 2024-12-30 15:32 | DVHPNRES ---
Progress Note Date Seen: Dec 30, 2024 Resident Creating Document: ELENITA CHURCHILL RESIDENT Has the PT tested + for MRSA If YES, has PT been informed?: No Medical Necessity Reason Pt with a Central, PICC or Fol: No (rn) Medical Necessity Reason Patient is a 64-year-old male with a past medical history of hypertension, GERD, hiatal hernia, leukemia presented to the ED with a chief complaint of chest pain since 10:30 a.m. in the morning yesterday. Patient reported that he was resting on the couch after he did some gardening and started to have sudden onset chest in the left lower chest which was pressure-like and radiating to the left arm and the back following which she called the EMS and they gave aspirin 325 mg and fentanyl following which the pain was improved. Patient denied any shortness of breath, palpitations, no history of coronary artery disease or [place], no history of stroke. Patient denied any nausea, vomiting, abdominal pain. Initial 12 lead ECG showed sinus rhythm with T-wave inversion in V1 and lead 3 but no other significant ST or T-wave changes. Initial troponin levels were 35 which increased to 134 after 1 hour and trended up to 444 after 2 hours. Patient has been repeated further evaluation Past medical history: As per HPI Past surgical history: Appendectomy Social history: Patient denies smoking, alcohol, drug use Home medications: Amlodipine 5 mg, losartan 100 mg, Protonix 40 mg 12/29/24: troponins were trending high more than thousand, patient was taken to the animal laboratory technician: Successful PTCA and stenting of the circumflex. 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 12/30/24: patient is getting better, cardiology sign off the case, possible DC tomorrow Objective vital signs Vital Sign Date Time Temp Pulse Resp B/P (MAP) Pulse Ox O2 Delivery O2 Flow Rate FiO2 12/30/24 13:00 98.4 72 18 132/67 (88) 96 98.4 12/30/24 08:04 Room Air* 0 21 Total Intake and Output 12/29/24 12/29/24 12/30/24 15:00 23:00 07:00 Intake Total 15 ml 100 ml 830 ml Balance 15 ml 100 ml 830 ml medications Current Medications Medications Dose Ordered Sig/Candace Route Start Time Stop Time Status Last Admin Dose Admin Nitroglycerin 0.4 mg Q5MINP PRN SL 12/29/24 02:45 Morphine Sulfate 2 mg Q30M PRN IV 12/29/24 02:45 12/29/24 20:20 2 MG Pantoprazole Sodium 40 mg DAILY IV 12/30/24 10:00 Atorvastatin Calcium 40 mg HS PO 12/29/24 22:00 12/29/24 22:10 40 MG Aspirin 81 mg DAILY PO 12/30/24 10:00 Cancel Losartan Potassium 25 mg DAILY PO 12/30/24 10:00 12/30/24 10:16 25 MG Clopidogrel Bisulfate 75 mg DAILY PO 12/30/24 10:00 Cancel Metoprolol Succinate 25 mg DAILY PO 12/30/24 10:00 12/30/24 10:17 25 MG Clopidogrel Bisulfate 75 mg DAILY PO 12/30/24 10:00 12/30/24 10:16 75 MG Aspirin 81 mg DAILY PO 12/30/24 10:00 12/30/24 10:17 81 MG Examination Gen - no pallor, no icterus, no cyanosis, no clubbing, no LAD, no edema . Skin - Patients skin is warm and dry. HEENT - normocephalic, atraumatic, moist mucous membranes. Neck - full ROM, no LAD, no JVD Pulmonary - B/L equal breath sounds, no crackles, no wheezing, no stridor. cardiovascular - regular S1,S2 heard, no added sounds, no murmurs heard. peripheral pulses normal radial 2+, pedal 2+. capillary refill normal <2 secs. No radio radial delay, no radial pedal delay GI - soft, nontender abdomen. no hepatospleenomegaly. Bowel sounds normoactive Neurological - Patient is A/O X 3 . Bilateral upper extremity strength 5/5, bilateral lower extremity strength 5/5, no facial droop, normal speech, no tremor, no sensory deficiets. laboratory and microbiology Laboratory Tests 12/30/24 05:41 Test 12/30/24 05:41 Range/Units Serum Glucose 84 74-106 mg/dL Problem List/Assessment/Plan Problem List/Assessment/Plan sp PTCA and stenting of the circumflex. 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 Acute chest pain NSTEMI likely type 1 Hypertensive heart disease with diastolic dysfunction - serial EKGs showed T-wave inversion in lead V1 and III, no other significant ST segment or T-wave changes - troponin levels up trended 35--> 134--> 444 --> 1461 -->1594 patient was taken to animal laboratory technician: angioplasty done -aspirin 81 mg -metoprolol 25 mg - losartan 25mg daily - atorvastatin 40 mg Rule out pulmonary embolism - Wells score for PE < 4, PE less likely - bilateral lower extremity venous Doppler pending - D-dimer 0.74 Prophylaxis: Protonix Goals of care discussed with the patient and his for over 20 minutes. Full code Time spent: 41 minutes Plan discussed with Dr. Pendleton Plan discussed with: Patient, Other (rn) Date of Service: Dec 30, 2024 Billing Provider: MADHAV PENDLETON MD Common Visit Codes: [id number] INP/OBS CARE(HIGH) ELENITA CHURCHILL RESIDENT Dec 30, 2024 15:32 MADHAV PENDLETON MD Jan 03, 2025 22:08
--- NOTE | 2024-12-30 16:45 | DVHPN2 ---
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 Vital Sign Date Time Temp Pulse Resp B/P (MAP) Pulse Ox O2 Delivery O2 Flow Rate FiO2 12/30/24 13:00 98.4 72 18 132/67 (88) 96 98.4 12/30/24 08:04 Room Air* 0 21 Total Intake and Output 12/29/24 12/29/24 12/30/24 15:00 23:00 07:00 Intake Total 15 ml 100 ml 830 ml Balance 15 ml 100 ml 830 ml medications Current Medications Medications Dose Ordered Sig/Candace Route Start Time Stop Time Status Last Admin Dose Admin Nitroglycerin 0.4 mg Q5MINP PRN SL 12/29/24 02:45 Morphine Sulfate 2 mg Q30M PRN IV 12/29/24 02:45 12/29/24 20:20 2 MG Pantoprazole Sodium 40 mg DAILY IV 12/30/24 10:00 Atorvastatin Calcium 40 mg HS PO 12/29/24 22:00 12/29/24 22:10 40 MG Aspirin 81 mg DAILY PO 12/30/24 10:00 Cancel Losartan Potassium 25 mg DAILY PO 12/30/24 10:00 12/30/24 10:16 25 MG Clopidogrel Bisulfate 75 mg DAILY PO 12/30/24 10:00 Cancel Metoprolol Succinate 25 mg DAILY PO 12/30/24 10:00 12/30/24 10:17 25 MG Clopidogrel Bisulfate 75 mg DAILY PO 12/30/24 10:00 12/30/24 10:16 75 MG Aspirin 81 mg DAILY PO 12/30/24 10:00 12/30/24 10:17 81 MG Examination: GENERAL:Normal, LUNGS:Normal, CVS:Normal, NEURO:Normal laboratory and microbiology Laboratory Tests 12/30/24 05:41 Test 12/30/24 05:41 Range/Units Serum Glucose 84 74-106 mg/dL Problem List/Assessment/Plan Problem List/Assessment/Plan Non ST-elevation myocardial infarction, s/p PTCA X 1 COREY to Cx Pertinent family history for cardiovascular disease Chronic lymphocytic leukemia. Hypertension GERD Plan/Recommendation (Dr. Wong) The patient underwent a coronary angiogram with left heart catheterization on 12/29/2024 in which there was a successful stenting of the circumflex. Ventriculography showed an EF of approximately 65% without wall motion abnormalities. At this time we will recommend to continue with dual antiplatelet therapy, lipid-lowering agent, and beta-kevin. Educated patient on the importance of continuing dual antiplatelet therapy for one full year. Dietary and lifestyle changes also discussed. 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 There is no further inpatient cardiac workup indicated at this time. Please reconsult if needed. Thank you for allowing us to participate in this patient's care. Please call if you have any questions or concerns. Critical care time: 50 min. This medical document was created using an electronic medical record system with voice recognition software and computerized dictation system. Although this document has been carefully reviewed, there might still be some phonetic and typographical errors. Occasional wrong-word or ``sound-alike substitutions may have occurred due to the inherent limitations of voice recognition software. These areas are purely typographical due to imperfections of the software programs and do not reflect any compromise in the patient's medical care. Please read the chart carefully and recognize, using context, where these substitutions have occurred. Plan discussed with: Patient Date of Service: Dec 30, 2024 Billing Provider: CORI MORALEZ Common Visit Codes: [id number] INP/OBS CARE(HIGH) CORI MORALEZ Dec 30, 2024 16:45
[2024-12-31 01:00] VITALS: BP 150/74; PULSE 71; RESP 18; TEMP 98.6; O2SAT 95
[2024-12-31 05:00] VITALS: BP 145/76; PULSE 68; RESP 18; TEMP 98.8; O2SAT 94
[2024-12-31 08:00] VITALS: PULSE 75
[2024-12-31 09:00] VITALS: BP 141/105; PULSE 71; RESP 18; TEMP 98.6; O2SAT 96
[2024-12-31 11:18] VITALS: BP 155/82; PULSE 71; TEMP 37
--- NOTE | 2025-01-01 23:55 | DVHSR ---
APPROVED REPORT EXAM: Two-dimensional and M-mode echocardiogram with Doppler and color Doppler. Blood Pressure: 105/59 mmHg INDICATION NSTEMI RISK FACTORS Height: 70, Weight: 190 DIMENSIONS LVDd (3.8-5.7cm)LA (2D)4.1 (1.9-4.0cm)Aortic Root4.2 (2.0-3.7cm) LVDs (2.5-4.0cm)LA (MM) (1.9-4.0cm)Aortic Cusp Exc1.8 (1.5-2.0cm) EF (%) 54.0 (55-70%)Rt. Atrium (1.9-4.0cm)Asc. Aorta cm Mitral Valve MitralMitral Stenosis E wave0.57m/sMV Mean GR.mmHg A wave0.81m/sMV Peak GR.131mmHg E/A ratio0.72D MVAcm2 DECEL [id number] 1/2 Sdja10tn IVRTmsDop MVA3.47cm2 Aortic Valve Aortic ValveAortic Stenosis V10.94m/Bita Mean GR.3mmHg V21.17m/Bita Peak GR.5mmHg LVOT Diameter2.2 (1.8-2.4cm)Doppler AVA3.05cm2 Pulmonic Valve V20.99m/s Tricuspid Valve TR Velocity2.19m/s [id number] Conclusion LV EF IS 65 % AND IS NORMAL NORMAL VALVES MILD MR NORMAL RV FUNCTION NO EFFUSION
--- NOTE | 2025-01-07 07:51 | DVHDSRES ---
Discharge Summary Date of Admission Resident Creating Document: ELENITA CHURCHILL RESIDENT Dec 29, 2024 at 02:36 Date of Discharge: Dec 31, 2024 Admitting Diagnosis sp PTCA and stenting of the circumflex. Labs/Diagnostic Data: Laboratory Results Test 12/30/24 05:41 12/29/24 09:49 12/29/24 08:44 12/29/24 03:21 White Blood Count 9.8 10^3/uL (4.4-10.8) Red Blood Count 5.24 10^6/uL (4.5-5.90) Hemoglobin 15.8 g/dL (13.5-17.5) Hematocrit 45.6 % (41.0-53.0) Mean Corpuscular Volume 87.1 fL (80.0-100.0) Mean Corpuscular Hemoglobin 30.2 pg (28.0-32.0) Mean Corpuscular Hemoglobin Concent 34.7 g/dL (32.0-36.0) Red Cell Distribution Width 13.8 % (11.8-14.3) Platelet Count 242 10^3/uL (140-450) Mean Platelet Volume 9.0 fL (6.9-10.8) Neutrophils (%) (Auto) 64.6 % (37.0-80.0) Lymphocytes (%) (Auto) 21.8 % (10.0-50.0) Monocytes (%) (Auto) 10.4 % (0.0-12.0) Eosinophils (%) (Auto) 2.8 % (0.0-7.0) Basophils (%) (Auto) 0.4 % (0.0-2.0) Neutrophils # (Auto) 6.3 10 ^3/uL (1.6-8.6) Lymphocytes # (Auto) 2.1 10 ^3/uL (0.4-5.4) Monocytes # (Auto) 1.0 10 ^3/uL (0-1.3) Eosinophils # (Auto) 0.3 10 ^3/uL (0-0.8) Basophils # (Auto) 0 10 ^3/uL (0-0.2) Nucleated Red Blood Cells 0.1 % Sodium Level 139 mmol/L (136-145) Potassium Level 4.0 mmol/L (3.5-5.1) Chloride Level 105 mmol/L (98-107) Carbon Dioxide Level 23 mmol/L (20-31) Anion Gap 11 (5-15) Blood Urea Nitrogen 12 mg/dL (9-23) Creatinine 0.89 mg/dL (0.700-1.30) Glomerular Filtration Rate Calc 95 mL/min (>90) BUN/Creatinine Ratio 13.5 (10.0-20.0) Serum Glucose 84 mg/dL (74-106) Calcium Level 10.3 mg/dL (8.7-10.4) Total Bilirubin 0.7 mg/dL (0.2-1.0) Aspartate Amino Transferase (AST) 24 U/L (<34) Alanine Aminotransferase (ALT) 14 U/L (7-40) Alkaline Phosphatase 113 U/L (46-116) Total Protein 6.5 g/dL (5.7-8.2) Albumin 4.4 g/dL (3.2-4.8) Activated Clotting Time 277 SEC. (93-166) Troponin I High Sensitivity 1594 ng/L (</=54) Prothrombin Time 11.2 sec (9.3-11.8) Prothrombin Time INR 1.06 (0.9-1.15) Activated Partial Thromboplast Time 32.5 SEC (24.5-34.5) D-Dimer, Quantitative 0.74 mg/L FEU (0.0-0.49) Magnesium Level 1.7 mg/dL (1.6-2.6) Triglycerides Level 95 mg/dL (< 150) Cholesterol Level 99 mg/dL (< 200) LDL Cholesterol 61 mg/dL (< 100) HDL Cholesterol 31 mg/dL (40-59) Thyroid Stimulating Hormone (TSH) 1.01 uIU/mL (0.55-4.78) Test 12/29/24 02:16 12/29/24 00:34 Urine Color Colorless (Yellow) Urine Clarity Clear (Clear) Urine pH 6.5 (5.0-9.0) Urine Specific Hale 1.008 (1.001-1.035) Urine Protein Negative (Negative) Urine Ketones Negative (Negative) Urine Blood Negative /uL (Negative) Urine Nitrite Negative (Negative) Urine Bilirubin Negative (Negative) Urine Urobilinogen Normal mg/dL (Negative) Urine Leukocyte Esterase Negative /uL (Negative) Urine RBC None seen /hpf (0 - 3) Urine Microscopic WBC < 1 /HPF (0-3) Urine Squamous Epithelial Cells None seen /hpf (<5) Urine Bacteria None seen /hpf (None Seen) Urine Glucose Normal mg/dL (Normal) Hemoglobin A1c 5.2 % A1C (<5.7) B-Type Natriuretic Peptide 20.10 pg/mL (0-100) Other Laboratory Tests 12/30/24 05:41 Brief Hx & Hospital Course: 64-year-old male with a past medical history of hypertension, GERD, hiatal hernia, and leukemia presented with chest pain that began on 12/28/24 at 10:30 AM while gardening. He described it as pressure-like and radiating to the left arm and back. EMS was called, and he was given aspirin 325 mg which alleviated the pain. He denied dyspnea, palpitations, prior CAD or SC, stroke, nausea, vomiting, or abdominal pain. Initial ECG showed sinus rhythm with T-wave inversion in V1 and lead III. Serial troponins trended as follows: 35 -134- [phone]. He was taken to the [facility] where he underwent successful PTCA and stenting of the circumflex artery. Moderate disease was noted in the LAD but did not require angioplasty. Hospital Course: The patient was admitted to the floor for monitoring after NSTEMI. He was managed medically with aspirin, beta-kevin, statin, and antihypertensives. No arrhythmias were noted. There was a low suspicion for PE based on a Wells score < 4; D-dimer was 0.74 and Doppler was pending. His condition improved significantly by 12/30/24, and cardiology signed off. He remained hemodynamically stable throughout the admission and was deemed appropriate for discharge. Physical Exam on Discharge: General: Alert, oriented, no acute distress. Cardiac: Regular rate and rhythm, no murmurs, rubs, or gallops. Respiratory: Clear to auscultation bilaterally, no rales or wheezes. Abdomen: Soft, non-tender, no distension. Extremities: No edema, no calf tenderness. Neuro: Alert and oriented x3, no focal deficits. Follow-Up: Cardiology within 1 week Primary care physician within 12 weeks Case discussed with Dr Alford Consults/Reason for consult cardiology due to nstemi Operations or Procedures Left heart catheterization bilateral cine coronary angiography. Left ventriculography. Intravascular ultrasound evaluation of circumflex and LAD. Fractional flow reserve evaluation of LAD. Procedure Details Procedure Details: Prior local anesthesia with 2% lidocaine to the right wrist and full informed consent obtained patient was prepped and draped in usual fashion followed by placement of a six [place] sheath into the radial artery followed by placement of a Damien catheter for cannulation of both right and left coronary ostium and ventriculography. Patient tolerated the procedure well there were no complications. Hemodynamics: Aortic blood pressure was 110/70. End-diastolic pressure was five. There was no gradient across the aortic valve on pullback Coronary anatomy: The RCA is a large vessel it is normal in its proximal mid and distal segments. It is dominant. The left main is large and normal however short. The circumflex is large with a 99% stenosis at its proximal to midportion at the level of the inferior branch. The LAD has notable calcification. There appears to be a 60-70% stenosis that by FFR was found to be 0.88. Ventriculography in the [place] projection showed an EF of 65% without wall motion abnormalities. Angioplasty: After performing angiographic evaluation we placed a three five XB LAD catheter and placed a C-arm blue wire into the circumflex coronary artery followed by PTCA with a 2.5 x 12 balloon. We then placed an intravascular ultrasound device into the circumflex coronary artery. This was a [employer] device. We found the artery to be a proximally 3-0 to 3.25 mm in diameter. We placed a 3-0 by 18 mm stent into the mid circumflex. We post dilated with a 3-0 by eight balloon. This was a noncompliant balloon.. We then placed intravascular ultrasound to determine adequate apposition of the stent struts. After verifying adequate position we then performed fractional flow reserve evaluation of the left anterior descending coronary and intravascular ultrasound showing a calcified vessel. FFR of .88 at the proximal segment and 0.83 distally however the artery distally was not amenable to angioplasty. Impression: Successful PTCA and stenting of the circumflex. 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 Normal left ventricular ejection fraction. Normal end-diastolic pressure at rest. Recommendation: dual antiplatelet therapy and risk factor modification to continue. Condition at Discharge: Good Final Diagnosis/Problems List sp PTCA and stenting of the circumflex. 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 Acute chest pain NSTEMI likely type 1 Hypertensive heart disease with diastolic dysfunction Rule out PE Discharge Disposition: Home Discharge Instruct/Medications Diet: Consistent carbohydrate, Cardiac 2g Na,low cholest Activity: Light activity Follow Up/Referral: please fu with dr white Medications: see prescription, please dont stop plavix and aspirin Scheduled Alum & Mag Hydrox-Simethicone (Mylanta Maximum Strength 400-400-40 mg/5Ml), 1 MYRA PO DAILY Amlodipine Besylate (Norvasc Tablet), 1 TAB PO DAILY, (Reported) Aspirin (Aspir-Low), 81 MG PO DAILY Atorvastatin Calcium (Atorvastatin Calcium), 40 MG PO DAILY Clopidogrel Bisulfate (Clopidogrel), 75 MG PO DAILY Gabapentin (Gabapentin), 1 CAP PO TID, (Reported) Losartan Potassium (Losartan Potassium), 50 MG PO DAILY Metoprolol Succinate (Metoprolol Succinate Er), 25 MG PO DAILY Discharge Statement: "Patient was advised to return to the ER or call 911 if any headaches, dizziness, shortness of breath, chest pain, abdominal pain, bleeding, fevers, or worsening of medical condition. Patient was counseled about treatment plan, medications, possible side effects, patientverbalized understanding. All questions were answered to the best of my ability. This discharge took greater then 30 minutes in planning, reviewing documentation, counseling the patient, and discussing with other team members." ASSESSMENT ASSESSMENT Assessment Non ST-elevation SC. 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 Date of Service: Dec 31, 2024 Billing Provider: MADHAV ALFORD MD Common Visit Codes: 53493-QXZ/OBS DISCH DAY >30min ELENITA CHURCHILL RESIDENT Jan 07, 2025 07:51 MADHAV ALFORD MD Jan 08, 2025 16:57
== END 2024-12-31 13:20 | disposition home or self-care (01) | DRG 321 ==
LOC: EDBD 00:22 → ER 00:22 → OVERFLOW 02:36 → TELE-CENTR 14:48
PROVIDERS: ADMIT Student in an Organized Health Care Education/Training Program; ATTEND Student in an Organized Health Care Education/Training Program
PROC: 027034Z Dilation of Coronary Artery, One Artery with Drug-eluting Intraluminal Device, Percutaneous Approach (ICD-10-PCS; principal; 2024-12-29)
PROC: B240ZZ3 Ultrasonography of Single Coronary Artery, Intravascular (ICD-10-PCS; 2024-12-29)
PROC: 4A023N7 Measurement of Cardiac Sampling and Pressure, Left Heart, Percutaneous Approach (ICD-10-PCS; 2024-12-29)
PROC: B211YZZ Fluoroscopy of Multiple Coronary Arteries using Other Contrast (ICD-10-PCS; 2024-12-29)
PROC: B215YZZ Fluoroscopy of Left Heart using Other Contrast (ICD-10-PCS; 2024-12-29)
DX: I21.4 Non-ST elevation (NSTEMI) myocardial infarction (principal); I50.31 Acute diastolic (congestive) heart failure; C91.10 Chronic lymphocytic leukemia of B-cell type not having achieved remission; I11.0 Hypertensive heart disease with heart failure; K21.9 Gastro-esophageal reflux disease without esophagitis; I10 Essential (primary) hypertension; I25.10 Atherosclerotic heart disease of native coronary artery without angina pectoris; J45.909 Unspecified asthma, uncomplicated; Z80.6 Family history of leukemia; Z82.3 Family history of stroke; Z82.49 Family history of ischemic heart disease and other diseases of the circulatory system; Z88.1 Allergy status to other antibiotic agents; Z88.5 Allergy status to narcotic agent; Z90.49 Acquired absence of other specified parts of digestive tract
CPT/HCPCS: 36415; 71045; 80048; 80053; 80061; 81001; 83036; 83735; 83880; 84443; 84484; 85025; 85379; 85610; 85730; 92941; 93005; 93306; 93458; 93970; 96365; 96375; 99152; 99291; G0378; J2250; J2470; Q9967

== ENCOUNTER 2025-01-31 01:00 | Inpatient (IN) | payer OTHER, MEDICAID ==
[~2025-01-31] VITALS: Ht 182.9 cm; Wt 83.9 kg
[~2025-01-31 01:00] MED LIST: ALUM1SUS16 PO; AML5T PO; ASPI-543 PO; ATOR40TA52 PO; CLOP75TA70 PO; GABA-1250 PO; LOSA-534 PO; METO25TA93 PO
--- NOTE | 2025-01-31 01:09 | ECG ---
[facility] Test Date: 2025-01-31 Test Time: 01:02:03 Pat Name: LUZ MARINA FRANZ Department: ED Room: 0212T Gender: M Medical Authorization Specialist: konrad : [id number] Requested By: JEANNE SOFIA Order Number: [id number] Reading MD: Siva Wong Measurements Intervals [place] Rate: 87 P: 10 PA: 177 QRS: 24 QRSD: 89 T: 40 QT: 345 QTc: 415 Interpretive Statements Sinus rhythm Low voltage, precordial leads Electronically Signed On 02-02-2025 17:49:29 PDT by Siva Wong Please click the below link to view image of tracing.
[2025-01-31 01:20] VITALS: O2SAT 95
--- NOTE | 2025-01-31 01:48 | DVH ---
CHEST RADIOGRAPH Indication: chest pain Technique: Single frontal view of the chest was obtained COMPARISON: XY CHEST PORTABLE on DOS: 12/29/24 FINDINGS: Lines and Tubes: None Lungs: Clear Pleura: No effusion. No pneumothorax. Cardiomediastinal contours: Unremarkable Bones: Unremarkable IMPRESSION: 1. No acute disease.
[2025-01-31 01:52] LABS: Hematocrit 44.2 % (41.0-53.0); Hemoglobin 15.2 g/dL (13.5-17.5); Mean Corpuscular Hemoglobin 30.0 pg (28.0-32.0); Mean Corpuscular Volume 87.3 fL (80.0-100.0); Nucleated Red Blood Cells % 0.1 %
[2025-01-31 02:05] LABS: INR 1.13 (0.9-1.15); Partial Thromboplastin Time 30.9 SEC (24.5-34.5); Prothrombin Time 11.8 sec (9.3-11.8)
[2025-01-31 02:20] LABS: Alanine Aminotransferase 33 U/L (7-40); Albumin 4.3 g/dL (3.2-4.8); Anion Gap 8 (5-15); BUN/Creatinine Ratio 14.0 (10.0-20.0); Blood Urea Nitrogen 13 mg/dL (9-23); Calcium 9.5 mg/dL (8.7-10.4); Carbon Dioxide 26 mmol/L (20-31); Chloride 101 mmol/L (98-107); Glucose 90 mg/dL (74-106); Potassium 4.0 mmol/L (3.5-5.1); Total Protein 6.3 g/dL (5.7-8.2)
[2025-01-31 02:21] LABS: Bilirubin, Total 0.4 mg/dL (0.2-1.0)
[2025-01-31 02:22] LABS: Alkaline Phosphatase 136 U/L (46-116); Sodium 135 mmol/L (136-145)
--- NOTE | 2025-01-31 03:33 | ED.PDOC ---
HPI Comments 64-year-old male brought in by ambulance complains of some dull some sternal chest pain for last 1 day. Patient states that he had recent stent placed symptoms today feel similar Chief Complaint: Chest Pain Time Seen by MD: 01:01 Allergies: Coded Allergies: Ceftriaxone (Verified Allergy, Severe, 09/01/14) Codeine (Unverified Allergy, Severe, 09/01/14) Clindamycin (Verified Allergy, Unknown, 01/31/25) Home Meds Active Scripts Alum & Mag Hydrox-Simethicone (Mylanta Maximum Strength 400-400-40 mg/5Ml) 1 Deepa Deepa, 1 DEEPA PO DAILY for 10 Days, #1 ML Prov:HAYLIE MattELENITA [facility] 12/30/24 Losartan Potassium (Losartan Potassium) 50 Mg Tab, 50 MG PO DAILY for 30 Days, #30 TAB Prov:HAYLIE MattOJAI [facility] 12/30/24 Metoprolol Succinate (Metoprolol Succinate Er) 25 Mg Tab, 25 MG PO DAILY for 30 Days, #30 TAB 3 Refills Prov:HAYLIE MattOJAI [facility] 12/30/24 Clopidogrel Bisulfate (CLOPIDOGREL) 75 Mg Tab, 75 MG PO DAILY for 30 Days, #30 TAB 3 Refills Prov:HAYLIE MattOJAI [facility] 12/30/24 Atorvastatin Calcium (ATORVASTATIN CALCIUM) 40 Mg Tab, 40 MG PO DAILY for 30 Days, #30 TAB 3 Refills Prov:HAYLIE MattOJAI [facility] 12/30/24 Aspirin (Aspir-Low) 81 Mg Tab, 81 MG PO DAILY for 30 Days, #30 TAB 3 Refills Prov:HAYLIE MattOJAI [facility] 12/30/24 Reported Medications Gabapentin (Gabapentin) 300 Mg Cap, 1 CAP PO TID, #90 CAP 5 Refills 12/29/24 Amlodipine Besylate (NORVASC TABLET) 5 Mg Tb, 1 TAB PO DAILY, #30 TAB 5 Refills 12/29/24 Mode of Arrival: EMS Past Medical History PAST MEDICAL HISTORY: Asthma, GERD, HTN Surgical History: Appendectomy Family History Family History: Unobtainable Social History Smoker: Non-Smoker Alcohol: Denies ETOH Use Drugs: Denies Drug Use Lives In: Home Constitutional: reports: fatigue Cardiovascular: reports: chest pain Gastrointestinal: reports: nausea All Other Systems: Reviewed and Negative Physical Exam General Appearance: Moderate Distress HEENT: Normal ENT Inspection, Pharynx Normal, TMs Normal Neck: Full Range of Motion, Non-Tender, Normal, Normal Inspection Respiratory: Chest Non-Tender, Lungs Clear, No Accessory Muscle Use, No Respiratory Distress, Normal Breath Sounds Cardiovascular: No Edema, No JVD, No Murmur, No Gallop, Normal Peripheral Pulses, Regular Rate/Rhythm Breast Exam: Deferred Gastrointestinal: No Organomegaly, Non Tender, No Pulsatile Mass, Normal Bowel Sounds, Soft Genitalia: Deferred Pelvic: Deferred Rectal: Deferred Extremities: No calf tenderness, Normal capillary refill, Normal inspection, Normal range of motion, Non-tender, No pedal edema Musculoskeletal : Apperance: Normal Neurologic: Alert, bankruptcy law specialist II-XII nml as Tested, No Motor Deficits, Normal Affect, Normal Mood, No Sensory Deficits Cerebellar Function: Normal Reflexes: Normal Skin: Dry, Normal Color, Warm Lymphatic: No Adenopathy Was a procedure done? Was a procedure done?: No CP Differential Dx Differential Diagnosis: A-fib, A-Flutter, Angina, Anxiety / Panic Attack, Heart Failure, Hyperthyroidism, Hyperventilation, Hypoxia, PAC's, Pacemaker Malfunction, PSVT, Pulmonary Embolus, V-Fib, V-Tach, Other X-Ray, Labs, Meds, VS Vital Signs Date Time Temp Pulse Resp B/P (MAP) Pulse Ox O2 Delivery O2 Flow Rate FiO2 01/31/25 02:00 75 16 135/67 (89) 95 01/31/25 01:20 99.2 82 16 146/67 (93) 95 99.2 01/31/25 01:20 95 Room Air* 0 21 01/31/25 01:05 99.1 96 18 123/79 (94) 95 99.1 01/31/25 01:02 87 Lab Test 01/31/25 02:40 01/31/25 01:30 Range/Units Troponin I High Sensitivity 3 L 4 </=54 ng/L White Blood Count 6.7 4.4-10.8 10^3/uL Red Blood Count 5.07 4.5-5.90 10^6/uL Hemoglobin 15.2 13.5-17.5 g/dL Hematocrit 44.2 41.0-53.0 % Mean Corpuscular Volume 87.3 80.0-100.0 fL Mean Corpuscular Hemoglobin 30.0 28.0-32.0 pg Mean Corpuscular Hemoglobin Concent 34.3 32.0-36.0 g/dL Red Cell Distribution Width 14.0 11.8-14.3 % Platelet Count 230 140-450 10^3/uL Mean Platelet Volume 8.4 6.9-10.8 fL Neutrophils (%) (Auto) 57.8 37.0-80.0 % Lymphocytes (%) (Auto) 23.3 10.0-50.0 % Monocytes (%) (Auto) 13.9 H 0.0-12.0 % Eosinophils (%) (Auto) 4.1 0.0-7.0 % Basophils (%) (Auto) 0.9 0.0-2.0 % Neutrophils # (Auto) 3.8 1.6-8.6 10 ^3/uL Lymphocytes # (Auto) 1.6 0.4-5.4 10 ^3/uL Monocytes # (Auto) 0.9 0-1.3 10 ^3/uL Eosinophils # (Auto) 0.3 0-0.8 10 ^3/uL Basophils # (Auto) 0.1 0-0.2 10 ^3/uL Nucleated Red Blood Cells 0.1 % Prothrombin Time 11.8 9.3-11.8 sec Prothrombin Time INR 1.13 0.9-1.15 Activated Partial Thromboplast Time 30.9 24.5-34.5 SEC D-Dimer, Quantitative 0.66 H 0.0-0.49 mg/L FEU Sodium Level 135 L 136-145 mmol/L Potassium Level 4.0 3.5-5.1 mmol/L Chloride Level 101 98-107 mmol/L Carbon Dioxide Level 26 20-31 mmol/L Anion Gap 8 5-15 Blood Urea Nitrogen 13 9-23 mg/dL Creatinine 0.93 0.700-1.30 mg/dL Glomerular Filtration Rate Calc 91 >90 mL/min BUN/Creatinine Ratio 14.0 10.0-20.0 Serum Glucose 90 74-106 mg/dL Calcium Level 9.5 8.7-10.4 mg/dL Total Bilirubin 0.4 0.2-1.0 mg/dL Aspartate Amino Transferase (AST) 21 13-40 U/L Alanine Aminotransferase (ALT) 33 7-40 U/L Alkaline Phosphatase 136 H 46-116 U/L Total Protein 6.3 5.7-8.2 g/dL Albumin 4.3 3.2-4.8 g/dL Time of 1ST Reevaluation: 02:30 Reevaluation 1ST: Unchanged Patient Education/Counseling: Diagnosis, Treatment Family Education/Counseling: No Family Present SEPSIS Sepsis Screen Date sepsis recognized/suspect: Jan 31, 2025 Time Sepsis recognized/suspect: 119 Recent Procedure: Yes On Antibiotic Therapy: No Respiratory Rate >20: No Heart Rate >90: No Temp<36 C (96.8 F) or >38.3 C: No SBP <90 or MAP <65 mmHG: No New Acute Mental Status Change: No Is the patient on CPAP, BIPAP,: No Physician Orders Electrocardigram (01/31/25 02:08) Electrocardigram (01/31/25 04:08) Chest Portable (01/31/25 01:01) Troponin-I Hs (01/31/25 04:01) Aspirin Tablet (01/31/25 03:30) Vital Signs Date Time Temp Pulse Resp B/P (MAP) Pulse Ox O2 Delivery O2 Flow Rate FiO2 01/31/25 02:00 75 16 135/67 (89) 95 01/31/25 01:20 99.2 82 16 146/67 (93) 95 99.2 01/31/25 01:20 95 Room Air* 0 21 01/31/25 01:05 99.1 96 18 123/79 (94) 95 99.1 01/31/25 01:02 87 Laboratory Tests Test 01/31/25 01:30 White Blood Count 6.7 10^3/uL (4.4-10.8) Departure 1 Departure Time of Disposition: 03:29 Impression: Primary Impression: Acute coronary syndrome Disposition: 09 ADMITTED INPATIENT Admit to: Tele Condition: Guarded Discharged With: Self Comments Chest Pain in Patient with History of CAD Chief Complaint: Chest pain History of Present Illness: Patient is a 64-year-old male with known coronary artery disease and recent stent placement who presented to the Emergency Department via ambulance with complaints of dull, substernal chest pain for the past one day. The pain is unprovoked with no known modifying factors. Given his extensive cardiac history including prior stents, there is high concern for acute coronary syndrome. Review of Systems: Limited due to acute presentation. Cardiovascular: Positive for chest pain as described in HPI. Constitutional: No reported fever, chills, or significant weight changes. Respiratory: No reported shortness of breath, cough, or wheezing. All other systems: Deferred due to acute presentation. Medications: Complete medication list not available at time of documentation. Likely on antiplatelet therapy given history of coronary stents. Allergies: No known allergies documented at time of evaluation. Past Medical History: Coronary artery disease Status post coronary stent placement (recent) Lab Results: CBC: Unremarkable Chemistry panel: Unremarkable Troponin: Initial value normal at 4 ng/L Imaging and Other Relevant Results: Chest X-ray: No acute pathology identified Medical Decision Making: Summary Statement: 64-year-old male with known CAD and recent stent placement presenting with one day of dull substernal chest pain, requiring evaluation for possible acute coronary syndrome despite initial normal troponin. Problem List: 1. Chest pain, 2. Coronary artery disease with recent stent placement, 3. Concern for acute coronary syndrome Differential Diagnosis: Acute coronary syndrome, unstable angina, stable angina, non-cardiac chest pain, gastroesophageal reflux disease, musculoskeletal pain, anxiety ED Course: Patient arrived via ambulance with chest pain. Initial workup included chest X-ray showing no acute pathology, CBC and chemistry panel both unremarkable, and initial troponin normal at 4 ng/L. Given his extensive cardiac history and presentation, patient was administered aspirin. Despite normal initial troponin, decision made to admit for further cardiac workup due to high clinical suspicion for acute coronary syndrome. Assessment and Plan: 1. Chest Pain/Suspected Acute Coronary Syndrome: - Patient presents with substernal chest pain and has significant cardiac risk factors including known CAD and recent stent placement - Initial troponin normal, but this does not rule out unstable angina or early ACS - Administered aspirin in ED - Plan: Admit to Cardiology service for further evaluation including serial cardiac enzymes, possible stress testing or cardiac catheterization as indicated 2. Coronary Artery Disease with Recent Stent: - Continue home medications including antiplatelet therapy - Cardiology to evaluate stent patency 3. Disposition: Admission to inpatient cardiology service for further cardiac workup and management Additional Notes: Patient admitted for further cardiac workup Billing Information: ICD-10: I20.9 - Angina pectoris, unspecified ICD-10: I25.10 - Atherosclerotic heart disease of [place] coronary artery without angina pectoris ICD-10: Z95.5 - Presence of coronary angioplasty implant and graft Critical Care Note Critical Care Time?: Yes (35 min-critical care time only) Critical care comment: Total critical care time: Approximately 36 minutes Due to a high probability of clinically significant, life threatening deterioration, the patient required my highest level of preparedness to intervene emergently and I personally spent this critical care time directly and personally managing the patient. This critical care time included obtaining a history; examining the patient; pulse oximetry; ordering and review of studies; arranging urgent treatment with development of a management plan; evaluation of patient's response to treatment; frequent reassessment; and, discussions with other providers. This critical care time was performed to assess and manage the high probability of imminent, life-threatening deterioration that could result in multi-organ failure. It was exclusive of separately billable procedures and treating other patients. Stability Stability form required: No Heart Score Heart Score: Heart Score Response (Comments) Value History Moderate Suspicious 1 EKG Repolarization Disturb 1 Age >65 2 Risk Factors >3 or Hx ASHD 2 Troponin Normal limit 0 Total 6 JEANNE SOFIA MD Jan 31, 2025 03:33
[2025-01-31] MEDS ORDERED: DOCUSATE SOD 100 MG CAP PO PRN (07:00)
[2025-01-31] MEDS ORDERED: ONDANSETRON HCL 4 MG/2 ML VIAL IV PRN (07:00)
[2025-01-31] MEDS ORDERED: ACETAMINOPHEN 325 MG TAB PO PRN (07:00)
[2025-01-31] MEDS ORDERED: NITROGLYCERIN 0.4 MG SL TAB SL PRN (07:00)
[2025-01-31] MEDS ORDERED: HYDROcodone-ACET 5/325MG TAB PO PRN (07:00)
[2025-01-31] MEDS ORDERED: MORPHINE SULFATE INJ 2 MG/ml SYRG IV PRN (07:00)
--- NOTE | 2025-01-31 07:33 | DVHHP2 ---
History of Present Illness Reason for Visit: Chest pain History of Present Illness Howard Patricia is a 64-year-old male with past medical history of hypertension, hyperlipidemia, GERD, and CAD with recent cardiac stent placement, who came to the hospital for chest pain. Patient states he began having chest pain last night about 2300 while resting, and watching TV. He states it was substernal, radiated to his back, left shoulder and down his arm. Patient was seen here 12/29/2024 for chest pain. Underwent cardiac label operator, and had a stent placed to his Circ. by Dr. Wong. He states the chest pain felt similar last night, but was not as intense. Patient also had an ECHO completed on that admission that showed EF 65%. Patient did follow up with Dr. Wong within a week of being discharged from the hospital. He has an appointment today with his primary care provider to receive a referral to follow up with his medical laboratory technician Dr. Pressley. Cardiovascular: CAD, HTN, hyperipidemia, Other (PTCA with cardiac stent 12/29/2024) GI: GERD Past Surgical History: Appendectomy, Other (right shoulder, bilateral feet, PTCA with cardiac stent) Smoke: No ALCOHOL: none Drugs: None Lives: with Family Domestic Violence: Neg Review of Systems Constitutional: No: Fever, Chills, Sweats, Weakness, Malaise, Other Eyes: No: Pain, Vision change, Conjunctivae inflammation, Eyelid inflammation, Other, Redness ENT: No: Ear pain, Ear discharge, Nose pain, Nose discharge, Nose congestion, Mouth pain, Mouth swelling, Throat pain, Throat swelling, Other Respiratory: No: Cough, Dry, Shortness of breath, SOB with excertion, Wheezing, Hemoptysis, Pleuritic Pain, Sputum, Wheezing, Other Cardiovascular: Chest Pain; No: Palpitations, Orthopnea, Paroxysmal Noc. Dyspnea, Edema, Lt Headedness, Other Gastrointestinal: Nausea; No: Vomiting, Abdominal Pain, Diarrhea, Constipation, Melena, Hematochezia, Other Genitourinary: No Dysuria, No Frequency, No Incontinence, No Hematuria, No Retention, No Other Musculoskeletal: No: other, neck pain, shoulder pain, arm pain, back pain, hand pain, leg pain, foot pain Skin: No: Rash, Lesions, Jaundice, Bruising, Other Neurological: No: Weakness, Numbness, Incoordination, Change in speech, Confusion, Seizures, Other Allergies: Coded Allergies: Ceftriaxone (Verified Allergy, Severe, 09/01/14) Codeine (Unverified Allergy, Severe, 09/01/14) Clindamycin (Verified Allergy, Unknown, 01/31/25) Exam Vital Signs Vital Signs Date Time Temp Pulse Resp B/P (MAP) Pulse Ox O2 Delivery O2 Flow Rate FiO2 01/31/25 06:00 67 16 144/57 (86) 96 01/31/25 01:20 99.2 99.2 01/31/25 01:20 Room Air* 0 21 General Appearance: Alert, Oriented X3, Cooperative, mild distress HEENT: Atraumatic, PERRLA Respiratory: Clear to auscultation, Normal air movement Cardiovascular: Regular rate, Normal S1, Normal S2, No murmurs Abdominal: Normal bowel sounds, Soft, No tenderness, No hepatospenomegaly Extremities: No clubbing, No cyanosis, No edema, Normal pulses, No tenderness/swelling Skin: No rashes, No breakdown, No significant lesion Neuro: Normal gait, Normal speech, Strength at 5/5 X4 ext Psych/Mental Status: Mental status NL, Mood NL Labs/Xrays Labs Test 01/31/25 02:40 01/31/25 01:30 Range/Units Troponin I High Sensitivity 3 L </=54 ng/L White Blood Count 6.7 4.4-10.8 10^3/uL Red Blood Count 5.07 4.5-5.90 10^6/uL Hemoglobin 15.2 13.5-17.5 g/dL Hematocrit 44.2 41.0-53.0 % Mean Corpuscular Volume 87.3 80.0-100.0 fL Mean Corpuscular Hemoglobin 30.0 28.0-32.0 pg Mean Corpuscular Hemoglobin Concent 34.3 32.0-36.0 g/dL Red Cell Distribution Width 14.0 11.8-14.3 % Platelet Count 230 140-450 10^3/uL Mean Platelet Volume 8.4 6.9-10.8 fL Neutrophils (%) (Auto) 57.8 37.0-80.0 % Lymphocytes (%) (Auto) 23.3 10.0-50.0 % Monocytes (%) (Auto) 13.9 H 0.0-12.0 % Eosinophils (%) (Auto) 4.1 0.0-7.0 % Basophils (%) (Auto) 0.9 0.0-2.0 % Neutrophils # (Auto) 3.8 1.6-8.6 10 ^3/uL Lymphocytes # (Auto) 1.6 0.4-5.4 10 ^3/uL Monocytes # (Auto) 0.9 0-1.3 10 ^3/uL Eosinophils # (Auto) 0.3 0-0.8 10 ^3/uL Basophils # (Auto) 0.1 0-0.2 10 ^3/uL Nucleated Red Blood Cells 0.1 % Prothrombin Time 11.8 9.3-11.8 sec Prothrombin Time INR 1.13 0.9-1.15 Activated Partial Thromboplast Time 30.9 24.5-34.5 SEC D-Dimer, Quantitative 0.66 H 0.0-0.49 mg/L FEU Sodium Level 135 L 136-145 mmol/L Potassium Level 4.0 3.5-5.1 mmol/L Chloride Level 101 98-107 mmol/L Carbon Dioxide Level 26 20-31 mmol/L Anion Gap 8 5-15 Blood Urea Nitrogen 13 9-23 mg/dL Creatinine 0.93 0.700-1.30 mg/dL Glomerular Filtration Rate Calc 91 >90 mL/min BUN/Creatinine Ratio 14.0 10.0-20.0 Serum Glucose 90 74-106 mg/dL Calcium Level 9.5 8.7-10.4 mg/dL Total Bilirubin 0.4 0.2-1.0 mg/dL Aspartate Amino Transferase (AST) 21 13-40 U/L Alanine Aminotransferase (ALT) 33 7-40 U/L Alkaline Phosphatase 136 H 46-116 U/L Total Protein 6.3 5.7-8.2 g/dL Albumin 4.3 3.2-4.8 g/dL CHEST RADIOGRAPH FINDINGS: Lines and Tubes: None Lungs: Clear Pleura: No effusion. No pneumothorax. Cardiomediastinal contours: Unremarkable Bones: Unremarkable IMPRESSION: 1. No acute disease. SEPSIS Sepsis Screen Date sepsis recognized/suspect: Jan 31, 2025 Time Sepsis recognized/suspect: 0120 Recent Procedure: Yes On Antibiotic Therapy: No Respiratory Rate >20: No Heart Rate >90: No Temp<36 C (96.8 F) or >38.3 C: No SBP <90 or MAP <65 mmHG: No New Acute Mental Status Change: No Is the patient on CPAP, BIPAP,: No Physician Orders Electrocardigram (01/31/25 02:08) Electrocardigram (01/31/25 04:08) Chest Portable (01/31/25 01:01) Admit (01/31/25 06:56) Code Status (01/31/25 06:56) Hydrocodone-Acet 5/325mg Tab ([place] 5/32 (01/31/25 07:00) Ondansetron Hcl (Zofran) (01/31/25 07:00) Docusate Sodium Capsule (Colace Capsule) (01/31/25 07:00) Complete Blood Count (02/01/25 04:00) Comprehensive Metabolic Panel (02/01/25 04:00) Npo (Nothing By Mouth) Diet (01/31/25 Breakfast) Condition: Serious (01/31/25 06:56) Acetaminophen Tablet (Tylenol Tablet) (01/31/25 07:00) Nitroglycerin Sublingual (Ntrostat Subli (01/31/25 07:00) Morphine Sulfate Injection (01/31/25 07:00) Stat Ekg For Chest Pain (01/31/25 06:56) Notify Md Of Changes From Base (01/31/25 06:56) Sales Compensation Analyst For 24 Hours (01/31/25 06:56) Emergency Dysrhythmia Protocol (01/31/25 06:56) Rhythm Strips Once Every Shift (01/31/25 06:56) Oxygen By Nasal Cannula (01/31/25 06:56) * Cardiology Consult (01/31/25 06:56) Amlodipine Tablet (Norvasc Tablet) (01/31/25 10:00) Aspirin Enteric Coated Tablet (Ecotrin E (01/31/25 10:00) Clopidogrel Bisulfate (Plavix) (01/31/25 10:00) Gabapentin Capsule (Neurontin Capsule) (01/31/25 14:00) Losartan Tablet (Cozaar Tablet) (01/31/25 10:00) (Nf) Atorvastatin Calcium (01/31/25 10:00) (Nf) Metoprolol Succinate (Metoprolol Maria (01/31/25 10:00) Vital Signs Date Time Temp Pulse Resp B/P (MAP) Pulse Ox O2 Delivery O2 Flow Rate FiO2 01/31/25 06:00 67 16 144/57 (86) 96 01/31/25 04:00 63 16 131/62 (85) 95 01/31/25 04:00 62 01/31/25 02:00 75 16 135/67 (89) 95 01/31/25 01:20 99.2 82 16 146/67 (93) 95 99.2 01/31/25 01:20 95 Room Air* 0 21 01/31/25 01:05 99.1 96 18 123/79 (94) 95 99.1 01/31/25 01:02 87 Laboratory Tests Test 01/31/25 01:30 White Blood Count 6.7 10^3/uL (4.4-10.8) Medications Medications Dose Ordered Sig/Candace Route Start Time Stop Time Status Last Admin Dose Admin Aspirin 162 mg ONCE ONCE PO 01/31/25 03:30 01/31/25 03:31 DC 01/31/25 03:40 162 MG Assessment/Plan Assessment/Plan Assessment: Possible Acute coronary syndrome, Hypertension, Coronary artery disease, Hyperlipidemia, Plan: Admit to Tele, Cardiology consult, IV hydrations, Pain control, NPO, Home medications reconciled, Plan discussed with: Patient, Spouse My Orders Orders - NA SHANKAR Procedure Category Date Status Time Admit ADMIT 01/31/25 Verified 06:56 Code Status CODE 01/31/25 Verified 06:56 Hydrocodone-Acet PHA 01/31/25 Verified 5/325mg Tab ([place] 07:00 Ondansetron Hcl PHA 01/31/25 Verified (Zofran) 07:00 Docusate Sodium PHA 01/31/25 Verified Capsule (Colace 07:00 Complete Blood Count LAB 02/01/25 Verified 04:00 Comprehensive LAB 02/01/25 Verified Metabolic Panel 04:00 Npo (Nothing By DIET 01/31/25 Verified Mouth) Diet Breakfast Condition: Serious NIGEL 01/31/25 Verified 06:56 Acetaminophen Tablet PHA 01/31/25 Verified (Tylenol Tablet) 07:00 Nitroglycerin PHA 01/31/25 Verified Sublingual (Ntrostat 07:00 Morphine Sulfate PHA 01/31/25 Verified Injection 07:00 Stat Ekg For Chest NIGEL 01/31/25 Verified Pain 06:56 Notify Md Of Changes [facility] 01/31/25 Verified From Base 06:56 Sales Compensation Analyst For [facility] 01/31/25 Verified 24 Hours 06:56 Emergency Dysrhythmia [facility] 01/31/25 Verified Protocol 06:56 Rhythm Strips Once [facility] 01/31/25 Verified Every Shift 06:56 Oxygen By Nasal RT 01/31/25 Verified Cannula 06:56 * Cardiology Consult CONS 01/31/25 Verified 06:56 Amlodipine Tablet [facility] 01/31/25 Verified (Norvasc Tablet) 10:00 Aspirin Enteric [facility] 01/31/25 Verified Coated Tablet 10:00 Clopidogrel Bisulfate [facility] 01/31/25 Verified (Plavix) 10:00 Gabapentin Capsule [facility] 01/31/25 Verified (Neurontin Capsule) 14:00 Losartan Tablet [facility] 01/31/25 Verified (Cozaar Tablet) 10:00 (Nf) Atorvastatin [facility] 01/31/25 Verified Calcium 10:00 (Nf) Metoprolol [facility] 01/31/25 Verified Succinate (Metoprolol 10:00 Date of Service: Jan 31, 2025 Billing Provider: NA SHANKAR Common Visit Codes: [id number] INP/OBS CARE (MOD) NA SHANKAR Jan 31, 2025 07:33
[2025-01-31] MEDS: SODIUM CHLORIDE 0.9% 1,000 ML IV SCH (08:47)
[2025-01-31] MEDS: METOPROLOL SUCCINATE XL 50 MG TAB PO SCH (09:31)
[2025-01-31] MEDS: ASPirin-EC 81 mg tab PO SCH (09:31)
[2025-01-31] MEDS: LOSARTAN POTASSIUM 50 MG TAB PO SCH (09:31)
[2025-01-31] MEDS: CLOPIDOGREL BISULFATE 75 MG TAB PO SCH (09:32)
[2025-01-31] MEDS ORDERED: PATIENTS OWN MEDICATION (Metoprolol Succinate (Metoprolol Succinate Er) 25 MG) PO SCH (10:00)
[2025-01-31] MEDS ORDERED: PATIENTS OWN MEDICATION (Atorvastatin Calcium 40 MG) PO SCH (10:00)
[2025-01-31 13:07] VITALS: BP 133/73; PULSE 65; RESP 16; TEMP 97.8; O2SAT 96
--- NOTE | 2025-01-31 13:15 | DVHINCON2 ---
Date Seen: Jan 31, 2025 Referring Physician RADHA Page Reason for Consultation Rule out ACS History of Present Illness This is a 64-year-old male patient who presents to the emergency room with chief complaint of chest pain. The patient reports that the chest pain began approximately two days ago. He describes it as unprovoked, sharp in nature, left-sided with radiation towards his back and shoulder blades. Associated symptoms include headache. Initial twelve lead electrocardiogram reveals normal sinus rhythm without any significant ST segment changes. Troponin levels have been negative. The patient does mention that when EMS arrived at his home, he noticed his blood pressure systolic reading was reaching as high as 190. Significant past medical history includes coronary artery disease status post PTCA x 1 COREY (on Plavix and aspirin), hypertension, chronic lymphocytic leukemia without current treatment, GERD, and obesity. Of note, the patient was recently seen at this facility and underwent a coronary angiogram with left heart catheterization on 12/29/2024 in which there was a successful PTCA and stenting of the circumflex. The patient has not followed up with his primary as400 consultant, Dr. Pressley, in the outpatient setting since his procedure. Past Medical History Past medical history reviewed. No other significant than mentioned above. Past Surgical History Right shoulder repair Appendectomy Bilateral feet Family History Family history reviewed. Social History Denies the use of tobacco, alcohol or illicit drugs. Allergies: Coded Allergies: Ceftriaxone (Verified Allergy, Severe, 09/01/14) Codeine (Unverified Allergy, Severe, 09/01/14) Clindamycin (Verified Allergy, Unknown, 01/31/25) Home Meds Active Scripts Alum & Mag Hydrox-Simethicone (Mylanta Maximum Strength 400-400-40 mg/5Ml) 1 Deepa Deepa, 1 DEEPA PO DAILY for 10 Days, #1 ML Prov:ELENITA CHURCHILL 12/30/24 Losartan Potassium (Losartan Potassium) 50 Mg Tab, 50 MG PO DAILY for 30 Days, #30 TAB Prov:ELENITA CHURCHILL 12/30/24 Metoprolol Succinate (Metoprolol Succinate Er) 25 Mg Tab, 25 MG PO DAILY for 30 Days, #30 TAB 3 Refills Prov:ELENITA CHURCHILL 12/30/24 Clopidogrel Bisulfate (CLOPIDOGREL) 75 Mg Tab, 75 MG PO DAILY for 30 Days, #30 TAB 3 Refills Prov:ELENITA CHURCHILL 12/30/24 Atorvastatin Calcium (ATORVASTATIN CALCIUM) 40 Mg Tab, 40 MG PO DAILY for 30 Days, #30 TAB 3 Refills Prov:ELENITA CHURCHILL RESIDENT 12/30/24 Aspirin (Aspir-Low) 81 Mg Tab, 81 MG PO DAILY for 30 Days, #30 TAB 3 Refills Prov:ELENITA CHURCHILL RESIDENT 12/30/24 Reported Medications Sucralfate (Sucralfate) 1 Gm Tab, 1 GM PO BID, GM 01/31/25 Famotidine (Famotidine) 20 Mg Tab, 20 MG PO DAILY for 30 Days, MG 01/31/25 Gabapentin (Gabapentin) 300 Mg Cap, 1 CAP PO TID, #90 CAP 5 Refills 12/29/24 Amlodipine Besylate (NORVASC TABLET) 5 Mg Tb, 1 TAB PO DAILY, #30 TAB 5 Refills 12/29/24 Home Meds Home medications reviewed. Current Medications Current Medications Medications (Trade) Dose Ordered Sig/Candace Route PRN Reason Start Time Stop Time Status Last Admin Acetaminophen/ Hydrocodone Bitart (Mittie 5/325MG Tab) 1 tab Q4HP PRN PO MODERATE PAIN (4-6 PAIN SCALE) 01/31/25 07:00 Ondansetron HCl (Zofran) 4 mg Q4HP PRN IV NAUSEA / VOMITING 01/31/25 07:00 Docusate Sodium (Colace Capsule) 100 mg BIDPRN PRN PO FOR CONSTIPATION 01/31/25 07:00 Acetaminophen (Tylenol Tablet) 650 mg Q6HP PRN PO PAIN SCALE 1-3 OR TEMP>100.4 01/31/25 07:00 Nitroglycerin (Ntrostat Sublingual) 0.4 mg Q5MINP PRN SL FOR CHEST PAIN 01/31/25 07:00 Morphine Sulfate 2 mg Q30M PRN IV FOR CHEST PAIN 01/31/25 07:00 Amlodipine Besylate (Norvasc Tablet) 5 mg DAILY PO 01/31/25 10:00 01/31/25 09:32 Aspirin (Ecotrin Enteric Coated Tablet) 81 mg DAILY PO 01/31/25 10:00 01/31/25 09:31 Clopidogrel Bisulfate (Plavix) 75 mg DAILY PO 01/31/25 10:00 01/31/25 09:32 Gabapentin (Neurontin Capsule) 300 mg TID PO 01/31/25 14:00 Losartan Potassium (Cozaar Tablet) 50 mg DAILY PO 01/31/25 10:00 01/31/25 09:31 Patient Own Medication 40 mg DAILY PO 01/31/25 10:00 UNV Patient Own Medication 25 mg DAILY PO 01/31/25 10:00 UNV Sodium Chloride 1,000 ml @ 75 mls/hr [id number] IV 01/31/25 08:00 01/31/25 08:47 Metoprolol Succinate (Toprol Xl) 25 mg DAILY PO 01/31/25 10:00 01/31/25 09:31 Atorvastatin Calcium (Lipitor) 40 mg HS PO 01/31/25 22:00 Review of Systems Constitutional: No symptom reported Ears, Nose, & Throat: No symptom reported Eyes: No symptom reported Neurological: No symptoms reported Pulmonary/Respiratory: No symptoms reported Cardiovascular: Chest pain Gastrointestinal: No symptom reported Genitourinary: No symptom reported Musculoskeletal: No symptom reported Skin: No symptom reported Psychiatric: No symptom reported Endocrine: No symptom reported Hematologic/Lymphatic: No symptom reported Vital Signs Vital Signs Date Time Temp Pulse Resp B/P (MAP) Pulse Ox O2 Delivery O2 Flow Rate FiO2 01/31/25 12:00 68 20 117/57 (77) 95 01/31/25 08:00 98.4 98.4 01/31/25 07:27 Room Air* 0 21 Physical Exam General Appearance: Cooperative. Obese Pulmonary/Respiratory: Clear, bilateral breaths sounds. Cardiovascular/Chest: Regular rate and rhythm. Peripheral Pulses: 2+ Radial (R). 2+ Radial (L). 2+ Pedal (R). 2+ Pedal (L) Abdominal Exam: Normal bowel sounds. Ankle Exam: Negative ankle edema Lower extremities: Negative lower extremity edema Neuro/Mental Status: A/OX4, coherent. Thoughts/Psych: Normal thought pattern. Appropriate mood and affect. Good judgment and insight. Appearance: No acute distress. Skin Exam: Normal inspection. Normal color. Warm and dry. Labs/Diagnostic Data Labs Test 01/31/25 02:40 01/31/25 01:30 Range/Units Troponin I High Sensitivity 3 L </=54 ng/L White Blood Count 6.7 4.4-10.8 10^3/uL Red Blood Count 5.07 4.5-5.90 10^6/uL Hemoglobin 15.2 13.5-17.5 g/dL Hematocrit 44.2 41.0-53.0 % Mean Corpuscular Volume 87.3 80.0-100.0 fL Mean Corpuscular Hemoglobin 30.0 28.0-32.0 pg Mean Corpuscular Hemoglobin Concent 34.3 32.0-36.0 g/dL Red Cell Distribution Width 14.0 11.8-14.3 % Platelet Count 230 140-450 10^3/uL Mean Platelet Volume 8.4 6.9-10.8 fL Neutrophils (%) (Auto) 57.8 37.0-80.0 % Lymphocytes (%) (Auto) 23.3 10.0-50.0 % Monocytes (%) (Auto) 13.9 H 0.0-12.0 % Eosinophils (%) (Auto) 4.1 0.0-7.0 % Basophils (%) (Auto) 0.9 0.0-2.0 % Neutrophils # (Auto) 3.8 1.6-8.6 10 ^3/uL Lymphocytes # (Auto) 1.6 0.4-5.4 10 ^3/uL Monocytes # (Auto) 0.9 0-1.3 10 ^3/uL Eosinophils # (Auto) 0.3 0-0.8 10 ^3/uL Basophils # (Auto) 0.1 0-0.2 10 ^3/uL Nucleated Red Blood Cells 0.1 % Prothrombin Time 11.8 9.3-11.8 sec Prothrombin Time INR 1.13 0.9-1.15 Activated Partial Thromboplast Time 30.9 24.5-34.5 SEC D-Dimer, Quantitative 0.66 H 0.0-0.49 mg/L FEU Sodium Level 135 L 136-145 mmol/L Potassium Level 4.0 3.5-5.1 mmol/L Chloride Level 101 98-107 mmol/L Carbon Dioxide Level 26 20-31 mmol/L Anion Gap 8 5-15 Blood Urea Nitrogen 13 9-23 mg/dL Creatinine 0.93 0.700-1.30 mg/dL Glomerular Filtration Rate Calc 91 >90 mL/min BUN/Creatinine Ratio 14.0 10.0-20.0 Serum Glucose 90 74-106 mg/dL Calcium Level 9.5 8.7-10.4 mg/dL Total Bilirubin 0.4 0.2-1.0 mg/dL Aspartate Amino Transferase (AST) 21 13-40 U/L Alanine Aminotransferase (ALT) 33 7-40 U/L Alkaline Phosphatase 136 H 46-116 U/L Total Protein 6.3 5.7-8.2 g/dL Albumin 4.3 3.2-4.8 g/dL Assessment Chest pain, likely in the setting of hypertensive urgency Coronary artery disease status post PTCA x1 COREY (on Plavix and aspirin) Chronic lymphocytic leukemia GERD Obesity Plan/Recommendation We will continue with the following plan/recommendations (Dr. Pressley): Patient seen and examined at bedside with . The patient recently underwent a coronary angiogram with left heart catheterization on 12/29/2024 in which there was successful PTCA and stenting of the circumflex. A recent echocardiogram from 12/29/2024 reveals an EF of 65% normal valves. We will recommend to continue with dual antiplatelet therapy and lipid-lowering agent. Continue with aggressive BP control. Close cardiac surveillance; notify Cardiology for any ECG changes. Thank you for allowing us to care for this patient. Please call with any questions or concerns. Critical care time spent: 44 minutes This medical document was created using an electronic medical record system with voice recognition software and computerized dictation system. Although this document has been carefully reviewed, there might still be some phonetic and typographical errors. Occasional wrong-word or ``sound-alike substitutions may have occurred due to the inherent limitations of voice recognition software. These areas are purely typographical due to imperfections of the software programs and do not reflect any compromise in the patient's medical care. Doyle meadows read the chart carefully and recognize, using context, where these substitutions have occurred. Plan discussed with: Patient NYHA Physical activity limitations: NA Date of Service: Jan 31, 2025 Billing Provider: CORI MORALEZ Cardiology Common Codes: 31644-KHGWHDT INP/OBS CARE (High) Cardiology Consultation Codes: 24432-MWRFUCAFI CONSULT <45MIN CORI MORALEZ Jan 31, 2025 13:15
[2025-01-31] MEDS: GABAPENTIN 300 MG CAP PO SCH (14:01)
[2025-01-31] MEDS ORDERED: SUCR1TAB PO (14:37)
[2025-01-31] MEDS ORDERED: FAMO-12 PO (14:37)
[2025-01-31 16:40] VITALS: BP 129/80; PULSE 58; RESP 19; TEMP 97.7; O2SAT 96
[2025-01-31 20:00] VITALS: PULSE 76
[2025-01-31 21:00] VITALS: BP 101/61; PULSE 61; RESP 14; TEMP 98.3; O2SAT 95
[2025-01-31] MEDS: ATORVASTATIN 20 MG TAB PO SCH (21:07)
[2025-02-01] VITALS (7 sets, daily range): BP systolic 110–130; BP diastolic 51–76; PULSE 51–96; RESP 14–19; TEMP 97.7–98.4; O2SAT 94–96
[2025-02-01 06:31] LABS: Hematocrit 44.1 % (41.0-53.0); Hemoglobin 15.2 g/dL (13.5-17.5); Mean Corpuscular Hemoglobin 30.1 pg (28.0-32.0); Mean Corpuscular Volume 87.7 fL (80.0-100.0); Nucleated Red Blood Cells % 0.1 %
[2025-02-01 06:42] LABS: Alanine Aminotransferase 25 U/L (7-40); Alkaline Phosphatase 103 U/L (46-116); Anion Gap 9 (5-15); BUN/Creatinine Ratio 13.8 (10.0-20.0); Blood Urea Nitrogen 12 mg/dL (9-23); Calcium 9.9 mg/dL (8.7-10.4); Carbon Dioxide 24 mmol/L (20-31); Chloride 105 mmol/L (98-107); Glucose 88 mg/dL (74-106); Potassium 4.1 mmol/L (3.5-5.1); Sodium 138 mmol/L (136-145); Total Protein 5.7 g/dL (5.7-8.2)
[2025-02-01 06:43] LABS: Albumin 4.0 g/dL (3.2-4.8)
[2025-02-01 06:44] LABS: Bilirubin, Total 0.6 mg/dL (0.2-1.0)
--- NOTE | 2025-02-01 11:19 | DVHDS2 ---
Discharge Summary Date of Admission Jan 31, 2025 at 06:56 Date of Discharge: Feb 01, 2025 Admitting Diagnosis Possible Acute coronary syndrome, Hypertension, Coronary artery disease, Hyperlipidemia, Labs/Diagnostic Data: Laboratory Results Test 02/01/25 05:24 01/31/25 02:40 01/31/25 01:30 White Blood Count 9.7 10^3/uL (4.4-10.8) Red Blood Count 5.03 10^6/uL (4.5-5.90) Hemoglobin 15.2 g/dL (13.5-17.5) Hematocrit 44.1 % (41.0-53.0) Mean Corpuscular Volume 87.7 fL (80.0-100.0) Mean Corpuscular Hemoglobin 30.1 pg (28.0-32.0) Mean Corpuscular Hemoglobin Concent 34.4 g/dL (32.0-36.0) Red Cell Distribution Width 13.9 % (11.8-14.3) Platelet Count 224 10^3/uL (140-450) Mean Platelet Volume 8.9 fL (6.9-10.8) Neutrophils (%) (Auto) 66.6 % (37.0-80.0) Lymphocytes (%) (Auto) 19.6 % (10.0-50.0) Monocytes (%) (Auto) 10.0 % (0.0-12.0) Eosinophils (%) (Auto) 3.3 % (0.0-7.0) Basophils (%) (Auto) 0.5 % (0.0-2.0) Neutrophils # (Auto) 6.4 10 ^3/uL (1.6-8.6) Lymphocytes # (Auto) 1.9 10 ^3/uL (0.4-5.4) Monocytes # (Auto) 1.0 10 ^3/uL (0-1.3) Eosinophils # (Auto) 0.3 10 ^3/uL (0-0.8) Basophils # (Auto) 0 10 ^3/uL (0-0.2) Nucleated Red Blood Cells 0.1 % Sodium Level 138 mmol/L (136-145) Potassium Level 4.1 mmol/L (3.5-5.1) Chloride Level 105 mmol/L (98-107) Carbon Dioxide Level 24 mmol/L (20-31) Anion Gap 9 (5-15) Blood Urea Nitrogen 12 mg/dL (9-23) Creatinine 0.87 mg/dL (0.700-1.30) Glomerular Filtration Rate Calc 95 mL/min (>90) BUN/Creatinine Ratio 13.8 (10.0-20.0) Serum Glucose 88 mg/dL (74-106) Calcium Level 9.9 mg/dL (8.7-10.4) Total Bilirubin 0.6 mg/dL (0.2-1.0) Aspartate Amino Transferase (AST) 20 U/L (13-40) Alanine Aminotransferase (ALT) 25 U/L (7-40) Alkaline Phosphatase 103 U/L (46-116) Total Protein 5.7 g/dL (5.7-8.2) Albumin 4.0 g/dL (3.2-4.8) Troponin I High Sensitivity 3 ng/L (</=54) Prothrombin Time 11.8 sec (9.3-11.8) Prothrombin Time INR 1.13 (0.9-1.15) Activated Partial Thromboplast Time 30.9 SEC (24.5-34.5) D-Dimer, Quantitative 0.66 mg/L FEU (0.0-0.49) Other Laboratory Tests 02/01/25 05:24 Brief Hx & Hospital Course: This is a 64 years old male with past medical history hypertension, hyperlipidemia, GERD, coronary artery disease status post recent cardiac stent placement in 12/29/2024. At that time patient has a stent placed in his circumflex by . His ejection fraction is 65%. Patient is supposed to see his sterile products processor next week. Patient complain of chest pain. Cardiac enzymes three set is negative. EKG showed no change. Routing Clerk's see the patient and recommend to discharge patient home. Follow up as outpatient with his sterile products processor per schedule. No further intervention from Cardiology. So I discharge the patient home. Advised the patient to follow up with , his sterile products processor's next week. Follow up with primary care physician 1-2 weeks. Activity as tolerated. Diet per home diet. Recommend low-salt low-cholesterol diet. Physical exam: HEENT: Normocephalic atraumatic pupils equal react to light and accommodation. Extraocular muscles intact, conjunctiva pink, oropharynx moist, no thrush, no exudate. Lymphatic: No lymphadenopathy Cardiovascular exam: S1, S2 was heard. No murmurs, rubs, gallops Lung: Clear on auscultation bilaterally, no wheeze, rale, rhonchi. GI: Abdominal soft, nondistended, nontenderness, positive bowel sounds. Extremity: No crepitus, cyanosis, edema. Pedal pulses present bilateral. Full range of motion. Skin: Normal turgor, no rash. Psych: Alert, oriented x3. Neurology: No focal deficits, cranial nerve II to XII grossly intact. This medical document was created using an electronic medical record system with [employer] computerized dictation system. Although this document has been carefully reviewed, there may still be some phonetic and typographical errors. These areas are purely typographical due to imperfections of the software programs, and do not reflect any compromise in the patient's medical care. Condition at Discharge: Stable Final Diagnosis/Problems List chest pain, acute coronary syndrome has been rule out. Hypertension, Coronary artery disease, Hyperlipidemia, Discharge Disposition: Home Discharge Instruct/Medications Diet: Cardiac 2g Na,low cholest Activity: No Restrictions, As Tolerated Follow Up/Referral: pcp 1-2 weeks Scheduled Alum & Mag Hydrox-Simethicone (Mylanta Maximum Strength 400-400-40 mg/5Ml), 1 MYRA PO DAILY Amlodipine Besylate (Norvasc Tablet), 1 TAB PO DAILY Aspirin (Aspir-Low), 81 MG PO DAILY Atorvastatin Calcium (Atorvastatin Calcium), 40 MG PO DAILY Clopidogrel Bisulfate (Clopidogrel), 75 MG PO DAILY Famotidine (Famotidine), 20 MG PO DAILY, (Reported) Gabapentin (Gabapentin), 1 CAP PO TID, (Reported) Losartan Potassium (Losartan Potassium), 50 MG PO DAILY Metoprolol Succinate (Metoprolol Succinate Er), 25 MG PO DAILY Sucralfate (Sucralfate), 1 GM PO BID, (Reported) Discharge Statement: "Patient was advised to return to the ER or call 911 if any headaches, dizziness, shortness of breath, chest pain, abdominal pain, bleeding, fevers, or worsening of medical condition. Patient was counseled about treatment plan, medications, possible side effects, patientverbalized understanding. All questions were answered to the best of my ability. This discharge took greater then 30 minutes in planning, reviewing documentation, counseling the patient, and discussing with other team members." ASSESSMENT ASSESSMENT Assessment chest pain Date of Service: Feb 01, 2025 Billing Provider: FRANTZ MIN MD Common Visit Codes: 89236-RYK/OBS DISCH DAY >30min FRANTZ MIN MD Feb 01, 2025 11:19
[2025-02-01] MEDS ORDERED: AML5T PO (12:20)
[2025-02-01] MEDS ORDERED: LOSA-534 PO (12:20)
== END 2025-02-01 15:20 | disposition home or self-care (01) | DRG 305 ==
LOC: EDBD 01:00 → ER 01:00 → OVERFLOW 06:56 → TELE-CENTR 13:30
PROVIDERS: ADMIT Internal Medicine; ATTEND Internal Medicine
DX: I16.0 Hypertensive urgency (principal); I10 Essential (primary) hypertension; I25.10 Atherosclerotic heart disease of native coronary artery without angina pectoris; E78.5 Hyperlipidemia, unspecified; K21.9 Gastro-esophageal reflux disease without esophagitis; E66.9 Obesity, unspecified; Z88.1 Allergy status to other antibiotic agents; Z79.82 Long term (current) use of aspirin; Z79.899 Other long term (current) drug therapy; Z95.5 Presence of coronary angioplasty implant and graft; Z68.25 Body mass index [BMI] 25.0-25.9, adult
CPT/HCPCS: 36415; 71045; 80053; 84484; 85025; 85379; 85610; 85730; 93005; 96360; G0378